=== PATIENT | male | born 1970 | race Caucasian/White ===

== ENCOUNTER 2023-03-31 13:25 | Outpatient (OUT) | payer BC, SELFPAY ==
--- NOTE | 2023-03-31 14:14 | PM.CN ---
Consult Note: HPI Data of Consult Patient: known to practice within the last 3 years Requesting Physician: OMA LOVE NP Primary Care Provider: DIVINA PEREZ Family Provider: Velia Duarte NP Consult Narrative Narrative: Gabriel Gruber a 53 year old male presents for follow up on chronic low back pain. Pt has history of L2-3 L4-5 ablations, Left side continues to provide 100% relief. Patient now having intense 8/10 pain reporting in right lower back without radiculopathy. Patient has been taking 800mg motrin PRN for pain with mild to no relief. cc:: CC: OMA LOVE NP Review of Systems ROS Status of ROS 10 or more systems reviewed and unremarkable except as noted in history and below Exam Constitutional Common normals: no apparent distress, oriented x3, healthy appearing, alert and well nourished General appearance: cooperative HENMT Common normals: normocephalic Head and scalp: normocephalic Mouth: oral and palatal mucosa normal Eye Common normals: PERRL Pupil: PERRL Neck & C-Spine Common normals: full ROM General: normal visual inspection Chest Common normals: inspection of chest normal Respiratory Common normals: normal respiratory effort, no retractions and no use of accessory muscles Back & Pelvis Common normals: thoracic and lumbar spine normal to inspection, no thoracic nor lumbar tenderness and straight leg raise negative bilaterally Lumbar spine/lower back: pain with ROM (pain in right lower back with rotation of back. ) Sacroiliac joints: SI joint(s) abnormal Other: Positive LAUREN, gaenslens, thigh thrust on right side with intense pain. tenderness to palpation over PSIS and SIJ joint deep palpation on right side. no radiculopathy present Extremity Common normals: normal to inspection, full ROM and no pedal edema Neuro Common normals: oriented x3, CN's II-XII intact bilaterally, moves all extremities, no focal motor deficits, no sensory deficits noted, deep tendon reflexes 2+ bilaterally and gait normal Sensorium/orientation: alert Gait (neuro): antalgic Motor exam: strength 5/5 throughout and no movement abnormalities noted Psych Common normals: mental status grossly normal, thought process normal, cooperative, affect normal, speech normal and activity/motor behavior normal Speech: normal speech Thought process: normal thought process Assessment and Plan Assessment and Plan (1) Medication monitoring encounter: (2) Sacroiliitis: Plan -start norco 5/325 BID PRN pain, side effects and risk/benefits discussed -avoid NSAIDs due to GI Bleeds -prescribed and discussed naloxone -OARRS reviewed and no discrepencies noted -update UDS today -right SIJ injection -f/u 1-2 weeks after injection
== END 2023-03-31 13:26 | disposition home or self-care (01) ==
PROVIDERS: Family Provider Nurse Practitioner; PCP Family Medicine; Visit Provider Nurse Practitioner
DX: M46.1 Sacroiliitis, not elsewhere classified (principal); Z51.81 Encounter for therapeutic drug level monitoring
CPT/HCPCS: G0463

== ENCOUNTER 2023-05-02 07:21 | Day surgery (SDC) | payer BC, SELFPAY ==
[2023-05-02 07:41] VITALS: BP 135/93; PULSE 90; RESP 14; TEMP 36.2; O2SAT 16
[2023-05-02 08:24] VITALS: BP 109/83; PULSE 88; RESP 18; O2SAT 99
[2023-05-02] MEDS: BUPIVACAINE HCL 0.25% PF 25 MG/10 ML VIAL INJ (08:25)
[2023-05-02] MEDS: IOHEXOL 240 MG/ML - 10 ML VIAL INJ (08:26)
[2023-05-02] MEDS: TRIAMCINOLONE ACETONIDE 40 MG/ML VIAL INJ (08:26)
[2023-05-02] MEDS: LIDOCAINE HCL 2% PF 100 MG/5 ML VIAL INJ (08:26)
--- NOTE | 2023-05-02 08:28 | W.PM.PROCNOT ---
Date of procedure: 05/02/23 Pre-op diagnosis: Right sacroiliac joint pain Post-op diagnosis: same as pre-op Procedure: Procedure: Block of the nerve innervating the right sacroiliac joint Medications: Bupivacaine 0.25% 4cc, kenalog 40mg After informed consent was obtained, the patient was brought to the medical procedure unit and placed in the prone position, when a timeout was completed verifying correct patient, procedure, site, positioning, implant, and/or special equipment.? The skin overlying the area was prepped and draped in standard sterile fashion using alcohol.? A 25-gauge needle was inserted towards the right nerve innervating the sacroiliac joint under direct fluoroscopic imaging.? Needle tip was advanced until the nerve was encountered.? We instilled a total of 3 mL of solution.? Postoperatively needles were removed.? The patient tolerated the procedure well without complication.? The patient reported reduction in pain symptoms postoperatively. Anesthesia: Local Surgeon: Davie Willett Pathology: none sent Condition: stable Disposition: no change
[2023-05-03 10:38] VITALS: BP 108/83; PULSE 83; RESP 18; O2SAT 97
== END 2023-05-02 08:30 | disposition home or self-care (01) ==
PROVIDERS: Family Provider Nurse Practitioner; PCP Family Medicine; Visit Provider Anesthesiology
DX: M53.3 Sacrococcygeal disorders, not elsewhere classified (principal)
CPT/HCPCS: 64451; 77002; Q9966

== ENCOUNTER 2023-07-06 11:02 | Outpatient (OUT) | payer BC, SELFPAY ==
--- NOTE | 2023-07-06 11:07 | XR_ITS ---
[address] [address] Patient Name: ALEJANDRA BOLDEN MRN: [id number] date: 1970 Sex: M Assigned Patient Location: RAD Current Patient Location: RAD Accession/Order Number: [id number] Exam Date: 07/06/2023 11:25 Report Date: 07/06/2023 20:30 At the request of: TORREY WILKINSON Procedure: XR abdomen min 2V Exam: Radiographs: XR abdomen min 2V Reason for exam: Acute Abdominal Pain Left Lower Quadrant R10.32 Comparison: CT scan dated 03/08/2021 XR/XR abdomen min 2V IMPRESSION: No free intraperitoneal air. No gas-filled dilated loops of small bowel or colon. No gaseous dilation of the stomach. No fecal impaction. Remainder unremarkable. Electronically authenticated by: MEAGHAN ZUÑIGA Date: 07/06/2023 20:30
== END 2023-07-06 11:03 | disposition home or self-care (01) ==
LOC: RAD 11:04
PROVIDERS: Family Provider Nurse Practitioner; PCP Family Medicine; Visit Provider Nurse Practitioner Family
DX: R10.32 Left lower quadrant pain (principal)
CPT/HCPCS: 74019

== ENCOUNTER 2024-09-25 15:25 | Outpatient (OUT) | payer BC, SELFPAY ==
--- NOTE | 2024-09-25 15:28 | MR_ITS ---
[address] [address] Patient Name: ALEJANDRA BOLDEN MRN: [id number] date: 1970 Sex: M Assigned Patient Location: MRI Current Patient Location: MRI Accession/Order Number: [id number] Exam Date: 09/25/2024 15:45 Report Date: 09/26/2024 14:49 At the request of: NON-STAFF PHYSICIAN Procedure: MR lumbar spine wo con EXAM: MR lumbar spine wo con HISTORY: Chronic Low Back Pain, Right Lumbosacral Pain. COMPARISON: 03/23/2018. TECHNIQUE: MRI images obtained with multiple sequences. MRI of the lumbar spine without contrast. Sequences obtained by standard department protocol. FINDINGS: The conus ends at L1. No abnormal signal of the terminal spinal cord. T11-T12: Mild disc degeneration. Mild broad-based posterior disc bulge. No spinal canal stenosis. No neural foraminal stenosis. T12-L1: Intervertebral disc height is preserved. No spinal canal stenosis. No neural foraminal stenosis. Facet joints are normal. L1-L2: Intervertebral disc height is preserved. No spinal canal stenosis. No neural foraminal stenosis. Facet joints are normal. L2-L3: Mild disc degeneration. Mild broad-based posterior disc bulge. No spinal canal stenosis. No neural foraminal stenosis. Facet joints are normal. L3-L4: Mild disc degeneration. Mild broad-based posterior disc bulge. No spinal canal stenosis. No neural foraminal stenosis. Facet joints are normal. L4-L5: Moderate disc degeneration. Central posterior disc protrusion. No spinal canal stenosis. Moderate left neural foraminal narrowing. Right neural foramen is open. Facet joints are normal. L5-S1: Moderate disc degeneration. Intervertebral disc height loss. Broad-based posterior disc bulge. No spinal canal stenosis. Bilateral moderate neural foraminal narrowing. Mild facet joint arthropathy. Degenerative endplate edema. No acute fractures. MR/MR lumbar spine wo con IMPRESSION: 1. Moderate neural foraminal narrowing at bilateral L5-S1. 2. Moderate disc degeneration at L4-L5 and L5-S1. 3. Central posterior disc protrusion at L4-L5. 4. No acute fractures. 5. Other findings as described. Electronically authenticated by: DAVID POSADA Date: 09/26/2024 14:49
--- OUTSIDE RECORDS SUMMARY | 2024-09-25 15:29 | XMS_ITS | CCD ---
Author Organization [facility] Care Team Providers Care Head Cashier Name Role Phone SARAH DÍAZ Referring Unavailable ANA, RUGEN M Primary Care Unavailable SARAH DÍAZ Referring Unavailable ANA, DIVINA Easton Primary Care Unavailable CHICA, DR NASIMA Roth Consulting Unavailable ANA, DR MURCIA Primary Care Unavailable CHICA, DR NASIMA Roth Attending Unavailable CHICA, DR NASIMA Roth Admitting Unavailable PALMA, NICOLAS Consulting Unavailable LORRIE ARCHER Consulting Unavailable ANA, DR MURCIA Primary Care Unavailable CHICA, DR NASIMA Roth Attending Unavailable CHICA, DR NASIMA Roth Admitting Unavailable ARCHERLORRIE WOODS Consulting Unavailable ANA, DR MURCIA Primary Care Unavailable CHICA, DR NASIMA Roth Attending Unavailable COTO, DR NASIMA Roth Admitting Unavailable CHICA, DR NASIMA Roth Consulting Unavailable ANA, DR MURCIA Primary Care Unavailable CHICA, DR NASIMA Roth Attending Unavailable CHICA, DR NASIMA Roth Admitting Unavailable RONY BENITO Consulting Unavailable ARCHER, LORRIE Consulting Unavailable ANA, DR MURCIA Primary Care Unavailable CHICA, DR NASIMA Roth Attending Unavailable CHICA, DR NASIMA Roth Admitting Unavailable CHICA, DR NASIMA Roth Consulting Unavailable ANA, DR MURCIA Primary Care Unavailable CHICA, DR NASIMA Roth Attending Unavailable CHICA, DR NASIMA Roth Admitting Unavailable CHICA, DR NASIMA Roth Consulting Unavailable ANA, DR MURCIA Primary Care Unavailable CHICA, DR NASIMA Roth Attending Unavailable CHCIA, DR NASIMA Roth Admitting Unavailable ARCHERLORRIE WOODS Consulting Unavailable ANA, DR MURCIA Primary Care Unavailable CHICA, DR NASIMA Roth Attending Unavailable COTO, DR NASIMA Roth Admitting Unavailable CHICA, DR NASIMA Roth Consulting Unavailable ANA, DR MURCIA Primary Care Unavailable CHICA, DR NASIMA Roth Attending Unavailable CHICA, DR NASIMA Roth Admitting Unavailable PALMA, NICOLAS Consulting Unavailable ANA, DR MURCIA Consulting Unavailable ANA, DR MURCIA Primary Care Unavailable ANA, DR MURCIA Attending Unavailable ANA, DR MURCIA Admitting Unavailable TEENA CONKLIN Consulting Unavailable ANA, DR MURCIA Primary Care Unavailable CHICA, DR NASIMA Roth Attending Unavailable CHICA, DR NASIMA Roth Admitting Unavailable LORRIE ARCHER Consulting Unavailable ANA, DR MURCIA Primary Care Unavailable CHICA, DR NASIMA Roth Attending Unavailable CHICA, DR NASIMA Roth Admitting Unavailable ARCHERLORRIE WOODS Consulting Unavailable ANA, DR MURCIA Primary Care Unavailable CHICA, DR NASIMA Roth Attending Unavailable CHICA, DR NASIMA Roth Admitting Unavailable MD Divina Perez Primary Care Provider DO Kory Pennington Jr Attending Provider [phone] MD Kimber Lucas Attending Provider Divina Perez Primary Care Unavailable Kimber Lucas Attending Unavailable Kimber Lucas Admitting Unavailable Kory Pennington Jr Admitting Unavailable Divina Perez Primary Care Unavailable Kory Pennington Jr Attending Unavailable Divina Perez Primary Care Unavailable Kimber Lucas Attending Unavailable Kimber Lucas Admitting Unavailable Kimber Lucas Unavailable Divina Perez MD Unavailable Divina Perez MD Primary Care Provider [phone] Divina Perez MD Primary Care Provider STEVEN GRANT Referring Unavailable DIVINA PEREZ Primary Care Unavailable DIVINA PEREZ Referring Unavailable DIVINA PEREZ Primary Care Unavailable STEVEN GRANT Attending Unavailable DIVINA PEREZ M Referring Unavailable DIVINA PEREZ M Primary Care Unavailable MEGAN JOLLEY Attending Unavailable STEVEN GRANT Referring Unavailable DIVINA PEREZ Attending Unavailable DIVINA PEREZ Attending Unavailable BINU SIBLEY Attending Unavailable DIVINA PEREZ Attending Unavailable MELANIE WATKINS Attending Unavailable STEVEN GRNAT Referring Unavailable DIVINA PEREZ Attending Unavailable CHIDI JENKINS Attending Unavailable STEVEN GRANT Referring Unavailable Medications Current Medications Medication Drug Class(es) Dates Sig (Normalized) Sig (Original) acetaminophen 325 mg / HYDROcodone bitartrate 5 mg oral tablet (17 sources) Opioid Agonist Start: 07-30-2024 End: 10-03-2024 take 1 tablet by mouth every six hours for pain HYDROcodone-acetam inophen ([place]) 5-325 MG tablet Indications: Lumbosacral spondylosis without myelopathy Take 1 tablet by mouth every 6 (six) hours if needed for severe pain 120 tablet 09/03/2024 10/03/2024 Active Start: 10-06-2022 take 1-2 tablets by mouth every four to six hours as needed HYDROcodone-Acetaminophen 5-325 MG 1-2 tablet as needed Orally every 4-6 hrs for 7 days Sep, Active [id number] 200 actuat albuterol 0.09 mg/actuat metered dose inhaler (12 sources) beta2-Adrenergic Agonist Start: 11-24-2023 take 2 puff(s) by mouth every six hours as needed albuterol HFA 90 mcg/act inhaler Indications: Smoking INHALE 2 PUFFS BY MOUTH EVERY 6 HOURS NEEDED FOR 30 DAYS 18 g 5 11/24/2023 Active take 2 puff(s) by in halation every six hours as needed VENTOLIN HFA 90 mcg/actuation inhaler Inhale 2 puffs every 6 (six) hours as needed. Active amLODIPine 10 mg oral tablet (20 sources) Dihydropyridine Calcium Channel Sanjana Start: 05-11-2021 take 1 tablet by mouth once daily amLODIPine (Norvasc) 10 MG tablet Indications: Benign essential hypertension (CMS/HCC) TAKE 1 TABLET BY MOUTH EVERY DAY 100 tablet 3 05/10/2024 Active Start: 05-11-2021 take 10 mg by mouth twice tiffany y Amlodipine Active 10 MG PO Twice daily May 10, 2021 11:00pm baclofen 20 mg oral tablet (2 sources) gamma-Aminobutyric Acid-ergic Agonist Start: 10-07-2022 take 20 mg by mouth once daily at bedtime Baclofen Active 20 MG PO Daily at bedtime October 07, 2022 12:00am carvedilol 25 mg oral tablet (20 sources) alpha-Adrenergic Sanjana, beta-Adrenergic Sanjana Start: 08-20-2024 take 1 tablet by mouth twice daily at mealtime carvedilol (Coreg) 25 MG tablet Indications: Benign essential hypertension (CMS/HCC) TAKE 1 TABLET BY MOUTH TWICE A DAY WITH FOOD 180 tablet 4 08/20/2024 Active Start: 05-08-2018 take 1 tablet by parish twice daily at mealtime carvedilol (Coreg) 25 MG tablet Indications: Benign essential hypertension (CMS/HCC) TAKE 1 TABLET BY MOUTH TWICE A DAY WITH FOOD 200 tablet 3 08/26/2023 Active Start: 05-08-2018 take 25 mg by mouth once daily in the morning Carvedilol Active 25 MG PO Every morning May 10, 2021 11:00pm cloNIDine hydrochloride 0.2 mg oral tablet (20 sources) Central alpha-2 Adrenergic Agonist Start: 02-08-2024 take 1 tablet by mouth twice daily cloNIDine (Catapres) 0.2 MG tablet Indications: Essential hypertension, benign (CMS/HCC) TAKE 1 TABLET BY MOUTH TWICE A DAY 200 tablet 4 02/08/2024 Active Start: 05-11-2021 Clonidine Hcl Active 0.2 MG PO As Directed May 10, 2021 11:00pm Start: 05-11-2021 take 0.1 mg by mouth twice shae ly Clonidine Hcl Active 0.1 MG PO Twice daily May 10, 2021 11:00pm Start: 05-19-2018 take 2 tablets by mo [facility] in the morning, then take 2 tablets by mouth at bedtime cloNIDine (CATAPRES) 0.1 mg tablet Take 2 tablets (0.2 mg total) by mouth in the morning and 2 tablets (0.2 mg total) before bedtime. 4 05/19/2018 Active diclofenac sodium 0.01 mg/mg topical gel (3 sources) Nonsteroidal Anti-inflammatory Drug Start: 11-03-2022 Diclofenac Sodium 1 % apply 1-2 grams to affected area two to four times daily as needed Transdermal Twice a day for 30 days Oct, Active doxycycline hyclate 100 mg oral tablet (1 source) Tetracycline-class Drug Start: 10-08-2022 take 100 mg by mouth twice daily Doxycycline Hyclate Active 100 MG PO Twice daily 10 October 08, 2022 12:00am furosemide 20 mg oral tablet (12 sources) Loop Diuretic Start: 05-08-2024 take 1 tablet by mouth at bedtime furosemide (Lasix) 20 MG tablet Indications: Benign essential hypertension (CMS/HCC) , Swelling of lower extremity TAKE 1 TABLET (20 MG) BY MOUTH IN THE MORNING AND BEFORE BEDTIME 200 tablet 3 05/08/2024 Active hydroCHLOROthiazide 50 mg oral tablet (13 sources) Thiazide Diuretic Start: 05-11-2021 take 50 mg by mouth once daily in the morning Hydrochlorothiazide Active 50 MG PO Every morning May 10, 2021 11:00pm Start: 05-11-2021 End: 05-11-2021 Hydrochlorothiazide Disconti nued 25 MG PO As Directed May 10, 2021 11:00pm May 11, 2021 6:02am End: 08-09-2024 take 1 tablet by mouth once daily hydroCHLOROthiazide (HYDRODIURIL) 12.5 mg tablet Take 12.5 mg by mouth daily. 08/09/2024 Discontinued (Therapy completed) methylPREDNISolone 4 mg oral tablet (3 sources) Corticosteroid Start: 11-03-2022 Medrol 4 MG as directed Orally for 6 days Oct, Active naproxen sodium 220 mg oral tablet (13 sources) Nonsteroidal Anti-inflammatory Drug Start: 10-07-2022 take 2 tablets by mouth twice daily Naproxen Sodium (Aleve) 220 mg Tablet Active 440 MG PO Twice daily October 07, 2022 12:00am take 1 tablet by mouth every twe lve hours naproxen sodium (Aleve) 220 MG tablet Take 220 mg by mouth every 12 (twelve) hours. PRN Active predniSONE 10 mg oral tablet (5 sources) Start: 07-30-2024 End: 08-15-2024 take 4 tablets by mouth once daily, then take 3 tablets by mouth once daily, then take 2 tablets by mouth once daily, then take 1 tablet by mouth once daily predniSONE (Deltasone) 10 MG tablet Indications: Lumbosacral spondylosis without myelopathy Take 4 tablets (40 mg) by mouth Daily for 4 days, THEN 3 tablets (30 mg) Daily for 4 days, THEN 2 tablets (20 mg) Daily for 4 days, THEN 1 tablet (10 mg) Daily for 4 days. 40 tablet 07/30/2024 08/15/2024 Active Start: 07-30-2024 End: 08-15-2024 predniSONE (DELTASONE) 10 mg tablet Take by mouth. 07/30/2024 08/15/2024 Active Start: 11-26-2022 predniSONE 5 M G TAKE 5 PILLS BY MOUTH x 2 DAYS, THEN TAKE 4 PILLS BY MOUTH x 2 DAYS, THEN TAKE 3 PILLS BY MOUTH x 2 DAYS, THEN TAKE 2 PILLS BY MOUTH X 2 DAYS, THEN TAKE 1 PILL BY MOUTH x 2 DAY Orally daily for 10 days Nov, Active probiotic (5 sources) probiotic Active tiZANidine 4 mg oral capsule (14 sources) Central alpha-2 Adrenergic Agonist Start: 4 End: 5 take 1 capsule by mouth in the morning, then take 1 capsule by mouth in the evening, then take 1 capsule by mouth at bedtime tiZANidine (Zanaflex) 4 MG capsule Indications: Lumbosacral spondylosis without myelopathy Take 1 capsule (4 mg) by mouth in the morning and 1 capsule (4 mg) in the evening and 1 capsule (4 mg) before bedtime. 90 capsule 07/30/2024 Active Start: 07-30-2024 tiZANidine (ZA NAFLEX) 4 mg tablet 1 tablet (4 mg total) 3 (three) times a day. 07/30/2024 Active traMADol hydrochloride 50 mg oral tablet (2 sources) Opioid Agonist Start: 10-07-2022 take 50 mg by mouth once daily Tramadol Active 50 MG PO Daily October 07, 2022 12:00am Completed/Discontinued Medications Medication Drug Class(es) Dates Sig (Normalized) Sig (Original) aspirin 81 mg oral tablet (16 sources) Platelet Aggregation Inhibitor, Nonsteroidal Anti-inflammatory Drug Start: 05-11-2021 End: 10-07-2022 take 81 mg by mouth once daily Aspirin Discontinued 81 MG PO Daily May 10, 2021 11:00pm October 07, 2022 9:50am aspirin (Aspir-L ow) 81 MG EC tablet Take by mouth 1 (one) time each day at the same time. Active dicyclomine hydrochloride 20 mg oral tablet (3 sources) Anticholinergic Start: 05-11-2021 End: 05-11-2021 Dicyclomine Discontinued 20 MG PO As Directed May 10, 2021 11:00pm May 11, 2021 6:02am hyoscyamine sulfate 0.125 mg sublingual tablet (3 sources) Start: 05-11-2021 End: 10-07-2022 Hyoscyamine Sulfate Discontinued 0.125 MG PO As Directed May 10, 2021 11:00pm October 07, 2022 9:51am ibuprofen 800 mg oral tablet (11 sources) Nonsteroidal Anti-inflammatory Drug Start: 02-07-2023 End: 07-30-2024 take 1 tablet by mouth three times daily at mealtime as needed ibuprofen 800 MG tablet TAKE 1 TABLET BY MOUTH THREE TIMES A DAY WITH FOOD OR MILK NEEDED FOR 30 DAYS 02/07/2023 07/30/2024 Discontinued (Therapy completed) Start: 10-15-2022 take 1 tablet by parish th three times daily at mealtime as needed Ibuprofen 800 MG 1 tablet with food or milk as needed Orally Three times a day for 30 days Sep, Active Start: 10-07-2022 take 800 mg by mouth twice shae ly Ibuprofen Active 800 MG PO Twice daily October 07, 2022 12:00am Problems Active Problems Problem Classification Problem Date Documented Date Episodic/Chronic Alcohol-related disorders (20 sources) Continuous chronic alcoholism; Translations: [Alcohol dependence, uncomplicated] Onset: 0 01-19-2023 Chronic Anxiety disorders (16 sources) Acute stress disorder; Translations: [Acute stress reaction] Onset: 3 01-19-2023 Chronic Disorders of lipid metabolism (16 sources) Hyperlipidemia; Translations: [Hyperlipidemia, unspecified] Onset: 9 01-27-2023 Chronic Diverticulosis and diverticulitis (20 sources) Diverticulosis of colon; Translations: [Diverticulosis of large intestine without perforation or abscess without bleeding] Onset: 3 01-19-2023 Chronic Essential hypertension (20 sources) Elevated blood pressure; Translations: [Essential (primary) hypertension] Onset: 9 01-19-2023 Chronic Joint disorders and dislocations; trauma-related (10 sources) Dislocation of metacarpophalangeal joint; Translations: [Dislocation of metacarpophalangeal joint of unspecified finger, initial encounter] Onset: 3 10-08-2022 Episodic Osteoarthritis (5 sources) Degenerative joint disease involving multiple joints; Translations: [Polyosteoarthritis, unspecified] Onset: 9 Chronic Other and unspecified benign neoplasm (3 sources) Polyp of colon; Translations: [Polyp of colon] 05-11-2021 Episodic Other and unspecified benign neoplasm (5 sources) History of polyp of colon; Translations: [Personal history of colonic polyps] Episodic Other circulatory disease (1 source) Other specified symptoms and signs involving the circulatory and respiratory systems; Translations: [OTH SPEC SX SIGNS INVLV CIRC RS] Onset: 3 Episodic Other connective tissue disease (4 sources) Other muscle spasm; Translations: [OTHER MUSCLE SPASM] Onset: 2 Episodic Other connective tissue disease (1 source) Pain in unspecified limb; Translations: [Pain in unspecified limb] Onset: 3 Episodic Other ear and sense organ disorders (2 sources) Bilateral hearing loss; Translations: [Unspecified hearing loss, bilateral] 07-11-2024 Chronic Other ear and sense organ disorders (11 sources) Hearing loss; Translations: [Unspecified hearing loss, unspecified ear] Onset: 3 01-19-2023 Chronic Other ear and sense organ disorders (11 sources) Sensorineural hearing loss, bilateral; Translations: [Sensorineural hearing loss, bilateral] Onset: 3 01-19-2023 Chronic Other ear and sense organ disorders (1 source) Sensorineural hearing loss; Translations: [Unspecified sensorineural hearing loss] Onset: 4 08-09-2024 Chronic Other endocrine disorders (11 sources) Male hypogonadism; Translations: [Testicular hypofunction] Onset: 3 01-19-2023 Chronic Other gastrointestinal disorders (5 sources) Irritable bowel syndrome; Translations: [Other irritable bowel syndrome] Chronic Other gastrointestinal disorders (11 sources) Irritable bowel syndrome characterized by constipation; Translations: [Irritable bowel syndrome with constipation] Onset: 3 01-19-2023 Chronic Other nervous system disorders (2 sources) Other chronic pain; Translations: [OTHER CHRONIC PAIN] Onset: 2 Chronic Other nervous system disorders (16 sources) Carpal tunnel syndrome; Translations: [Carpal tunnel syndrome, left upper limb] Onset: 3 01-19-2023 Chronic Other nervous system disorders (11 sources) Ulnar nerve entrapment at elbow; Translations: [Lesion of ulnar nerve, unspecified upper limb] Onset: 3 01-19-2023 Chronic Other nervous system disorders (11 sources) Disorder of right median nerve; Translations: [Other lesions of median nerve, right upper limb] Onset: 3 01-19-2023 Chronic Other nervous system disorders (11 sources) Lesion of ulnar nerve, right upper limb; Translations: [Lesion of ulnar nerve] Onset: 3 01-19-2023 Chronic Other nervous system disorders (2 sources) Chronic pain; Translations: [Other chronic pain] 08-29-2024 Chronic Other nervous system disorders (1 source) Pain in limb; Translations: [Other acute postprocedural pain] 10-08-2022 Episodic Other nervous system disorders (1 source) Other acute postprocedural pain; Translations: [Other acute postprocedural pain] Onset: 3 Episodic Other screening for suspected conditions (not mental disorders or infectious disease) (4 sources) Encounter for screening, unspecified; Translations: [ENCOUNTER FOR SCREENING UNSPECIFIED] Onset: 3 Episodic Other upper respiratory disease (16 sources) Allergic rhinitis; Translations: [Allergic rhinitis, unspecified] Onset: 9 01-19-2023 Chronic Residual codes; unclassified (11 sources) Sleep apnea; Translations: [Sleep apnea, unspecified] Onset: 3 01-19-2023 Chronic Residual codes; unclassified (2 sources) Chronic back pain 08-09-2024 Episodic Residual codes; unclassified (1 source) Pain, unspecified; Translations: [Pain, unspecified] Onset: 4 Episodic Spondylosis; intervertebral disc disorders; other back problems (20 sources) Other intervertebral disc degeneration, lumbar region; Translations: [Spondylosis without myelopathy or radiculopathy, lumbar region] Onset: 8 Chronic Spondylosis; intervertebral disc disorders; other back problems (20 sources) Muscle spasm of back; Translations: [Pain in thoracic spine] Onset: 2 Episodic Sprains and strains (10 sources) Traumatic rupture of collateral ligament of metacarpophalangeal joint of finger; Translations: [Traumatic rupture of collateral ligament of unspecified finger at metacarpophalangeal and interphalangeal joint, initial encounter] Onset: 3 10-08-2022 Episodic Substance-related disorders (11 sources) Smoker; Translations: [Nicotine dependence, unspecified, uncomplicated] Onset: 3 01-19-2023 Chronic Unclassified (3 sources) COUGH, UNSPECIFIED; Translations: [COUGH, UNSPECIFIED] Onset: 3 Unclassified (4 sources) LOW BACK PAIN, UNSPECIFIED; Translations: [LOW BACK PAIN, UNSPECIFIED] Onset: 2 Unclassified (1 source) Traumatic rupture of collateral ligament of right middle finger at metacarpophalangeal and interphalangeal joint, initial encounter; Translations: [Traumatic rupture of collateral ligament of right middle finger at metacarpophalangeal and interphalangeal joint, initial encounter] Onset: 3 Unclassified (1 source) Encounter for preprocedural laboratory examination; Translations: [Encounter for preprocedural laboratory examination] Onset: 3 Unclassified (2 sources) Low back pain, unspecified; Translations: [Low back pain, unspecified] Onset: 4 Unclassified (1 source) Consult Onset: 4 Past or Other Problems Problem Classification Problem Date Documented Da te Episodic/Chronic Abdominal pain (19 sources) Abdominal pain; Translations: [Unspecified abdominal pain] Onset: 01-19-2023 05-11-2021 Episodic Nonmalignant breast conditions (11 sources) Pain of breast; Translations: [Mastodynia] Onset: 07-18-2023 07-18-2023 Episodic Other and unspecified benign neoplasm (11 sources) Benign neoplasm of colon; Translations: [Benign neoplasm of colon, unspecified] Onset: 01-19-2023 01-19-2023 Episodic Other circulatory disease (11 sources) Cardiovascular finding; Translations: [Other specified symptoms and signs involving the circulatory and respiratory systems] Onset: 01-19-2023 01-19-2023 Episodic Other connective tissue disease (11 sources) Swelling of lower limb; Translations: [Other specified soft tissue disorders] Onset: 01-03-2024 01-03-2024 Episodic Other ear and sense organ disorders (11 sources) Bilateral tinnitus; Translations: [Tinnitus, bilateral] Onset: 01-19-2023 01-19-2023 Episodic Other ear and sense organ disorders (11 sources) Tinnitus; Translations: [Tinnitus, unspecified ear] Onset: 01-19-2023 3 Episodic Other gastrointestinal disorders (11 sources) Dysphagia; Translations: [Dysphagia, unspecified] Onset: 01-19-2023 01-19-2023 Episodic Other male genital disorders (11 sources) Disorder of male genital organ; Translations: [Other specified disorders of the male genital organs] Onset: 01-19-2023 01-19-2023 Episodic Residual codes; unclassified (5 sources) Tobacco user; Translations: [Tobacco use] Onset: 08-23-2008 Episodic Unclassified (1 source) COUGH, UNSPECIFIED; Translations: [COUGH, UNSPECIFIED] Onset: 09-06-2022 Unclassified (1 source) LOW BACK PAIN, UNSPECIFIED; Translations: [LOW BACK PAIN, UNSPECIFIED] Onset: 10-28-2021 Unclassified (1 source) Onset: 08-09-2024 08-09-2024 Results Test Name Value Interpretation Reference Range Facility XR LUMBAR SPINE AP, LATERAL, FLEXION AND EXTENSION ONLYon 08-07-2024 XR LUMBAR SPINE AP, LATERAL, FLEXION AND EXTENSION ONLY XR LUMBAR SPINE AP, LATERAL, FLEXION AND EXTENSION ONLY XR LUMBAR SPINE AP, LATERAL, FLEXION AND EXTENSION ONLY INDICATION: Low back pain, unspecified back pain laterality, unspecified chronicity, unspecified whether sciatica present. FINDINGS: Satisfactory alignment of the lumbar spine. No pathologic motion on flexion and extension views. Vertebral body heights are preserved. No compression fracture. Moderate degenerative changes at L4-5 and L5-S1 with intervertebral disc space height loss, osteophyte formation, and facet hypertrophy. SI joints are symmetric. IMPRESSION: 1. No acute findings. 2. Moderate degenerative changes at L4-5 and L5-S1 as above. 3. No pathologic motion on flexion and extension views. Finalized by Jeffrey Yoon MD on 08/07/2024 11:53 PM Normal [facility] XR finger RT 2nd digiton XR finger RT 2nd digit [facility] Main [place] [id number] XRay Report Signed Patient: Alejandra Bolden MR#: [id number] : 1970 Acct:[id number] Age/Sex: 52 / M ADM Date: 10/08/22 Loc: [place] Room: Type: [facility] Attending Dr: Kimber Lucas MD Copies to: Kimber Lucas MD Ordering Provider: Kimber Lucas MD Date of Service: 10/08/22 XR/XR finger RT 2nd digit: FINGER PINNING XR finger RT 2nd digit 10/08/2022 2:36 PM SIGNS AND SYMPTOMS: Intraoperative fixation of right second digit PROTOCOL: Intraoperative views of the right hand COMPARISON: None FINDINGS: Intraoperative views of the right hand demonstrate hardware fixation of the right second digit. Cumulative Air Kerma in mGy: 16.4 mGy XR/XR finger RT 2nd digit IMPRESSION: Intraoperative views of the right hand demonstrate hardware fixation of the right second digit. Impression dictated by: Srinivas Park M.D.10/08/2022 2:47 PM Dictation Location: [place] [address] Transcribed By: [facility] 10/08/22 1447 Dictated By: Srinivas Park II, MD 10/08/22 1446 Signed By: 10/08/22 1447 Normal [facility] XR hand RT min 3V*on 023 XR hand RT min 3V* [place] [address] XRay Report Signed Patient: Alejandra Bolden MR#: [id number] : 1970 Acct:[id number] Age/Sex: 52 / M ADM Date: 10/08/22 Loc: [place] Room: Type: [facility] Attending Dr: Kimber Lucas MD Copies to: Kimber Lucas MD Ordering Provider: Kimber Lucas MD Date of Service: 10/08/22 XR/XR hand RT min 3V*: s/p OR index/ long MCP volar dislocations w/ RCL repairs RIGHT HAND - 3 views REASON FOR EXAM: MCP volar dislocations with RCL repairs. COMPARISON: Right hand 10/05/2022 FINDINGS: Splint is in place. Soft tissue swelling is noted. There is been interval reduction of the previously identified subluxations involving the second and third MCP joints. Scattered degenerative changes, worst at the CMC joint of the thumb. XR/XR hand RT min 3V* IMPRESSION: POSTOPERATIVE CHANGES. Impression dictated by: Dimitry Pink Jr., [email or web address]/08/2022 3:31 PM Dictation Location: [place] [address] Transcribed By: [facility] 10/08/22 1531 Dictated By: Dimitry Pink Jr, DO 10/08/22 1526 Signed By: 10/08/22 1531 Normal [facility] Albumin [Mass/volume] in Ser um or PlasmaOrdered By: Kimber Lucas on 10-07-2022 Albumin [Mass/Vol] 3.5 g/dL 3.2-5.5 [facility] Basophils Auto (Bld) [#/Vol] Ordered By: Kimber Lucas on 10-07-2022 Basophils (Bld) [#/Vol] 0.0 10*3/uL 0.0-0.2 [facility] Basophils/100 WBC Auto (Bld) Ordered By: Kimber Lucas on 10-07-2022 Basophils/100 WBC (Bld) 0.5 % . [facility] Complete Blood Count Auto Di ffon 10-07-2022 Basophils (Bld) [#/Vol] 0.0 10*3/uL Normal 0.0-0.2 [facility] Comment on above: Result Comment: PERF ORMED BY: [place] [address] PATHOLOGIST ASSISTANT PRINCIPAL JAYESH CARTER M.D. Performed By: #### C BC, CMP #### [facility] [address] [place] [address] [place] Basophils/100 WBC (Bld) 0.5 % Normal . [facility] Comment on above: Performed By: #### C BC, CMP #### [facility] [address] [place] [address] [place] Eosinophils (Bld) [#/Vol] 0.1 10*3/uL Normal 0.0-0.45 [facility] Comment on above: Performed By: #### C BC, CMP #### [facility] [address] [place] [address] [place] Eosinophils/100 WBC (Bld) 0.8 % Normal . [facility] Comment on above: Performed By: #### C BC, CMP #### [facility] [address] Erythrocyte distribution width (RBC) [Ratio] 14.6 % Normal 12.0-14.8 [facility] Comment on above: Performed By: #### C BC, CMP #### [facility] [address] Hematocrit (Bld) [Volume fraction] 41.8 % Normal 38.8-50.0 [facility] Comment on above: Performed By: #### C BC, CMP #### [facility] [address] Hemoglobin (Bld) [Mass/Vol] 14.7 g/dL Normal 13.0-17.0 [facility] Comment on above: Performed By: #### C BC, CMP #### [facility] [address] Lymphocytes (Bld) [#/Vol] 2.5 10*3/uL Normal 1.00-4.8 [facility] Comment on above: Performed By: #### C BC, CMP #### [facility] [address] Lymphocytes/100 WBC (Bld) 36.2 % Normal . [facility] Comment on above: Performed By: #### C BC, CMP #### [facility] [address] MCH (RBC) [Entitic mass] 34.5 pg Normal 27.5-35.2 [facility] Comment on above: Performed By: #### C BC, CMP #### [facility] [address] MCV (RBC) [Entitic vol] 97.6 fL Normal 83.5-101 [facility] Comment on above: Performed By: #### C BC, CMP #### [facility] [address] Mean Corpuscular HGB Conc 35.3 g/dL Normal 32.5-35.6 [facility] Comment on above: Performed By: #### C BC, CMP #### [facility] [address] [place] [address] [place] Monocytes (Bld) [#/Vol] 0.8 10*3/uL Normal 0.0-0.8 [facility] Comment on above: Performed By: #### C BC, CMP #### [facility] [address] [place] [id number] [place] Monocytes/100 WBC (Bld) 11.7 % Normal . [facility] Comment on above: Performed By: #### C BC, CMP #### [facility] [address] [place] [address] [place] Neutrophils (Bld) [#/Vol] 3.5 10*3/uL Normal 1.8-7.7 [facility] Comment on above: Performed By: #### C BC, CMP #### [facility] [address] Neutrophils/100 WBC (Bld) 50.8 % Normal . [facility] Comment on above: Performed By: #### C BC, CMP #### [facility] [address] [place] [address] [place] NRBC% 0.1 /100{WBC} Normal 0-0.5 [facility] Comment on above: Performed By: #### C BC, CMP #### [facility] [address] [place] [address] [place] Platelet mean volume (Bld) [Entitic vol] 8.4 fL Normal 6.6-10.1 [facility] Comment on above: Performed By: #### C BC, CMP #### [facility] [address] [place] [address] [place] Platelets (Bld) [#/Vol] 210 10*3/uL Normal 150-450 [facility] Comment on above: Performed By: #### C BC, CMP #### [facility] [address] [place] [address] [place] RBC (Bld) [#/Vol] 4.28 10*6/uL Normal 3.90-5.60 [facility] Comment on above: Performed By: #### C BC, CMP #### [address] WBC (Bld) [#/Vol] 6.9 10*3/uL Normal 4.1-10.5 [facility] Comment on above: Performed By: #### C BC, CMP #### [address] Comprehensive Metabolic Pane bhupinder 10-07-2022 Albumin [Mass/Vol] 3.5 g/dL Normal 3.2-5.5 [facility] Comment on above: Performed By: #### C BC, CMP #### [address] Albumin/Globulin [Mass ratio] 1.5 {ratio} Normal [facility] Comment on above: Performed By: #### C BC, CMP #### [address] ALP [Catalytic activity/Vol] 76 U/L Normal 32-92 [facility] Comment on above: Result Comment: PERF ORMED BY: [place] [address] PATHOLOGIST ASSISTANT PRINCIPAL JAYESH CARTER M.D. Performed By: #### C BC, CMP #### [address] ALT [Catalytic activity/Vol] 36 U/L Normal 10-60 [facility] Comment on above: Performed By: #### C BC, CMP #### [address] Anion gap [Moles/Vol] 12.1 mmol/L Normal 6.0-15.0 [facility] Comment on above: Performed By: #### C BC, CMP #### [address] AST [Catalytic activity/Vol] 33 U/L Normal 10-42 [facility] Comment on above: Performed By: #### C BC, CMP #### [address] [place] [address] [place] Bilirubin [Mass/Vol] 0.7 mg/dL Normal 0.3-1.2 [facility] Comment on above: Performed By: #### C BC, CMP #### [facility] [address] Calcium [Mass/Vol] 8.9 mg/dL Normal 8.2-10.2 [facility] Comment on above: Performed By: #### C BC, CMP #### [facility] [address] Chloride [Moles/Vol] 97 mmol/L Normal 95-114 [facility] Comment on above: Performed By: #### C BC, CMP #### [facility] [address] CO2 [Moles/Vol] 29.2 mmol/L Normal 22.0-30.0 [facility] Comment on above: Performed By: #### C BC, CMP #### [facility] [address] Creatinine [Mass/Vol] 0.86 mg/dL Normal 0.64-1.27 [facility] Comment on above: Performed By: #### C BC, CMP #### [address] Estimated GFR ( Jennifer > 60 Normal [facility] Comment on above: Result Comment: GFR estimated reference range: According to KDOQI guidelines, <60 ml/min/1.73m2 is sufficient to diagnose a patient with chronic kidney disease. Performed By: #### C BC, CMP #### [facility] [address] [place] [address] [place] Estimated GFR (Non- Am > 60 Normal [facility] Comment on above: Performed By: #### C BC, CMP #### [facility] [address] [place] [address] [place] Globulin (S) [Mass/Vol] 2.3 g/dL Normal [facility] Comment on above: Performed By: #### C BC, CMP #### [facility] [address] Glucose [Mass/Vol] 86 mg/dL Normal 70-100 [facility] Comment on above: Result Comment: [place] Glucose Reference Range is dependent on time and content of last meal. Glucose of more than 200 mg/dL in a nonstressed, ambulatory subject supports the diagnosis of Diabetes Mellitus. ADA recommended reference range Performed By: #### C BC, CMP #### [facility] [address] Potassium [Moles/Vol] 3.3 mmol/L Low 3.5-5.1 [facility] Comment on above: Performed By: #### C BC, CMP #### [facility] [address] Protein [Mass/Vol] 5.8 g/dL Low 6.1-7.9 [facility] Comment on above: Performed By: #### C BC, CMP #### [address] Sodium [Moles/Vol] 135 mmol/L Low 136-146 [facility] Comment on above: Performed By: #### C BC, CMP #### [place] [address] [place] Urea nitrogen [Mass/Vol] 6 mg/dL Low 9-23 [facility] Comment on above: Performed By: #### C BC, CMP #### [place] [address] [place] Creatinine and Glomerular fi ltration rate.predicted panel (S/P/Bld)Ordered By: Kimber Lucas on 10-07-2022 Creatinine [Mass/Vol] 0.86 mg/dL 0.64-1.27 [facility] ECG 12 lead ECGon 10-07-2022 ECG 12 lead ECG [facility] [place] [address] [place] [address] Electrocardiograph Report Signed Patient: Alejandra Bolden MR#: [id number] : 1970 Acct:[id number] Age/Sex: 52 / M ADM Date: 10/07/22 Loc: PS Room: Type: [facility] Attending Dr: Kimber Lucas MD Ordering Provider: Kimber Lucas MD Date of Service: 10/07/22 ECG/ECG 12 lead ECG: Pre op Copies to: Test Reason : Blood Pressure : / mmHG Vent. Rate : 064 BPM Atrial Rate : 064 BPM P-R Int : 136 ms QRS Dur : 088 ms QT Int : 436 ms P-R-T Axes : 067 037 051 degrees QTc Int : 449 ms Normal sinus rhythm Normal ECG No previous ECGs available Confirmed by DAVID YORK DO ([id number]) on 10/07/2022 9:39:48 PM Referred By: DR LUCAS Electronically Signed By:DAVID YORK DO Transcribed By: MUS Signed By David York DO 10/07 Normal [facility] Eosinophils Auto (Bld) [#/Vo l]Ordered By: Kimber Lucas on 10-07-2022 Eosinophils (Bld) [#/Vol] 0.1 10*3/uL 0.0-0.45 [facility] Eosinophils/100 WBC Auto (Bl d)Ordered By: Kimber Lucas on 10-07-2022 Eosinophils/100 WBC (Bld) 0.8 % . [facility] Erythrocyte distribution wid th Auto (RBC) [Ratio]Ordered By: Kimber Lucas on 10-07-2022 Erythrocyte distribution width (RBC) [Ratio] 14.6 % 12.0-14.8 [facility] Estimated glomerular filtrat ion rate (GFR) non- AmericanOrdered By: Kimber Lucas on 10-07-2022 GFR/1.73 sq M.predicted among non-blacks MDRD (S/P/Bld) [Vol rate/Area] > 60 mL/Min [facility] Globulin Calc (S) [Mass/Vol] Ordered By: Kimber Lucas on 10-07-2022 Globulin (S) [Mass/Vol] 2.3 g/dL [facility] Hematocrit Auto (Bld) [Volum e fraction]Ordered By: Kimber Lucas on 10-07-2022 Hematocrit (Bld) [Volume fraction] 41.8 % 38.8-50.0 [facility] Hemoglobin [Mass/volume] in BloodOrdered By: Kimber Lucas on 10-07-2022 Hemoglobin (Bld) [Mass/Vol] 14.7 g/dL 13.0-17.0 [facility] Leukocytes [#/volume] correc tiffanie for nucleated erythrocytes in Blood by Automated counOrdered By: Kimber Lucas on 10-07-2022 WBC corrected for nucl RBC Auto (Bld) [#/Vol] 6.9 10*3/uL 4.1-10.5 [facility] Lymphocytes Auto (Bld) [#/Vo l]Ordered By: Kimber Lucas on 10-07-2022 Lymphocytes (Bld) [#/Vol] 2.5 10*3/uL 1.00-4.8 [facility] Lymphocytes/100 WBC Auto (Bl d)Ordered By: Kimber Lucas on 10-07-2022 Lymphocytes/100 WBC (Bld) 36.2 % . [facility] MCH Auto (RBC) [Entitic mass ]Ordered By: Kimber Lucas on 10-07-2022 MCH (RBC) [Entitic mass] 34.5 pg 27.5-35.2 [facility] MCHC Auto (RBC) [Mass/Vol]Or dered By: Kimber Lucas on 10-07-2022 MCHC (RBC) [Mass/Vol] 35.3 g/dL 32.5-35.6 [facility] MCV Auto (RBC) [Entitic vol] Ordered By: Kimber Lucas on 10-07-2022 MCV (RBC) [Entitic vol] 97.6 fL 83.5-101 [facility] Monocytes Auto (Bld) [#/Vol] Ordered By: Kimber Lucas on 10-07-2022 Monocytes (Bld) [#/Vol] 0.8 10*3/uL 0.0-0.8 [facility] Monocytes/100 WBC Auto (Bld) Ordered By: Kimber Lucas on 10-07-2022 Monocytes/100 WBC (Bld) 11.7 % . [facility] Neutrophils Auto (Bld) [#/Vo l]Ordered By: Kimber Lucas on 10-07-2022 Neutrophils (Bld) [#/Vol] 3.5 10*3/uL 1.8-7.7 [facility] Neutrophils/100 WBC Auto (Bl d)Ordered By: Kimber Lucas on 10-07-2022 Neutrophils/100 WBC (Bld) 50.8 % . [facility] No Panel InformationOrdered By: Kimber Lucas on 10-07-2022 Estimated GFR () > 60 mL/Min [facility] Comment on above: GFR estimated refere nce range: According to KDOQI guidelines, <60 ml/min/1.73m2 is sufficient to diagnose a patient with chronic kidney disease. Pharmacy Creatinine Clearance (Chem N/A [facility] Nucleated erythrocytes [Pres ence] in Blood by Automated countOrdered By: Kimber Lucas on 10-07-2022 Nucleated RBC Auto Ql (Bld) 0.1 /100{WBC} 0-0.5 [facility] Platelet mean volume Auto (B ld) [Entitic vol]Ordered By: Kimber Lucas on 10-07-2022 Platelet mean volume (Bld) [Entitic vol] 8.4 fL 6.6-10.1 [facility] Platelets Auto (Bld) [#/Vol] Ordered By: Kimber Lucas on 10-07-2022 Platelets (Bld) [#/Vol] 210 10*3/uL 150-450 [facility] Protein [Mass/volume] in Ser um or PlasmaOrdered By: Kimber Lucas on 10-07-2022 Protein [Mass/Vol] 5.8 g/dL 6.1-7.9 [facility] RBC Auto (Bld) [#/Vol]Ordere d By: Kimber Lucas on 10-07-2022 RBC (Bld) [#/Vol] 4.28 10*6/uL 3.90-5.60 [facility] Serum or plasma alanine collado otransferase measurement without P-5'-P (enzymatic activiOrdered By: Kimber Lucas on 10-07-2022 ALT No additional P-5'-P [Catalytic activity/Vol] 36 U/L 10-60 [facility] Serum or plasma albumin/glob ulin mass ratioOrdered By: Kimber Lucas on 10-07-2022 Albumin/Globulin [Mass ratio] 1.5 {ratio} [facility] Serum or plasma alkaline adair sphatase measurement (enzymatic activity/volume)Ordered By: Kimber Lucas on 10-07-2022 ALP [Catalytic activity/Vol] 76 U/L 32-92 [facility] Serum or plasma anion gap de terminationOrdered By: Kimber Lucas on 10-07-2022 Anion gap [Moles/Vol] 12.1 mmol/L 6.0-15.0 [facility] Serum or plasma aspartate am inotransferase measurement (enzymatic activity/volume)Ordered By: Kimber Lucas on 10-07-2022 AST [Catalytic activity/Vol] 33 U/L 10-42 [facility] Serum or plasma calcium praful urement (mass/volume)Ordered By: Kimber Lucas on 10-07-2022 Calcium [Mass/Vol] 8.9 mg/dL 8.2-10.2 [facility] Serum or plasma chloride yonatan surement (moles/volume)Ordered By: Kimber Lucas on 10-07-2022 Chloride [Moles/Vol] 97 mmol/L 95-114 [facility] Serum or plasma glucose praful urement (mass/volume)Ordered By: Kimber Lucas on 10-07-2022 Glucose [Mass/Vol] 86 mg/dL 70-100 [facility] Comment on above: ADA recommended refe rence rangeRandom Glucose Reference Range is dependent on time and content of last meal. Glucose of more than 200 mg/dL in a nonstressed, ambulatory subject supports the diagnosis of Diabetes Mellitus. Serum or plasma potassium me asurement (moles/volume)Ordered By: Kimber Lucas on 10-07-2022 Potassium [Moles/Vol] 3.3 mmol/L 3.5-5.1 [facility] Serum or plasma sodium measu rement (moles/volume)Ordered By: Kimber Lucas on 10-07-2022 Sodium [Moles/Vol] 135 mmol/L 136-146 [facility] Serum or plasma total biliru bin measurement (mass/volume)Ordered By: Kimber Lucas on 10-07-2022 Bilirubin [Mass/Vol] 0.7 mg/dL 0.3-1.2 [facility] Serum or plasma total carbon dioxide measurement (moles/volume)Ordered By: Kimber Lucas on 10-07-2022 CO2 [Moles/Vol] 29.2 mmol/L 22.0-30.0 [facility] Serum or plasma urea nitroge n measurement (mass/volume)Ordered By: Kimber Lucas on 10-07-2022 Urea nitrogen [Mass/Vol] 6 mg/dL 05-14 [facility] WBC Auto (Bld) [#/Vol]Ordere d By: Kimber Lucas on 10-07-2022 WBC (Bld) [#/Vol] 6.9 10*3/uL 4.1-10.5 [facility] XR hand RT min 3V*on 023 XR hand RT min 3V* [place] [address] XRay Report Signed Patient: Alejandra Bolden MR#: [id number] : 1970 Acct:[id number] Age/Sex: 52 / M ADM Date: 10/05/22 Loc: [place] Room: Type: [facility] Attending Dr: Kory Pennington Jr, DO Copies to: Kory Pennington DO Ordering Provider: Kory Pennington DO Date of Service: 10/05/22 XR/XR hand RT min 3V*: [facility] Attn: to 3rd, 4th and fifth fingers RIGHT HAND - 3 views REASON FOR EXAM: Generally injury at work. Now pain across metacarpal phalangeal joints with swelling. COMPARISON: None FINDINGS: Soft tissue swelling is noted. There is volar subluxation of the second and third MCP joints Severe degenerative changes of the CMC joint of the thumb. Moderate degenerative changes involving the DIP joint of the third digit. No bony erosions. XR/XR hand RT min 3V* IMPRESSION: SOFT TISSUE SWELLING IS NOTED WITH VOLAR SUBLUXATION OF THE SECOND AND THIRD MCP JOINTS. NO ACUTE FRACTURE IS SEEN. DEGENERATIVE CHANGES OF THE RIGHT HAND, WORST AT THE CMC JOINT OF THE THUMB.. Impression dictated by: Dimitry Pink Jr., D.O.10/05/2022 9:23 AM Dictation Location: [place] [address] Transcribed By: [facility] 10/05/22922 Dictated By: Dimitry Pink Jr, DO 10/05/22917 Signed By: 10/05/22922 Normal [facility] XR CHEST 2 Von 09-07-2022 XR CHEST 2 V EXAM: CHEST 2 VIEWS HISTORY: Cough TECHNIQUE: PA and lateral views chest. COMPARISON: None. FINDINGS: The lungs are clear. There is no focal lung consolidation, pleural effusion or pneumothorax. There is a right midlung granuloma. Pulmonary vasculature is within normal limits. The cardiomediastinal silhouette is normal. There are degenerative changes and mild anterior wedging in the thoracic spine. There is cervical spine fusion instrumentation. IMPRESSION: 1. Clear lungs without acute cardiopulmonary disease. Recommend followup imaging if symptoms worsen or persist. Electronically authenticated by: TEENA CONKLIN Date: 2022-09-07 09:01 Normal [facility] US Testicular/Scrotumon - US Testicular/Scrotum HISTORY: Right laura e lump FINDINGS: Right Testicle4.4 x 3.3 x 2.0 cm Left Testicle4.4 x 4.7 x 2.0 cm Normal testicular size. Normal vascularity, no suspicious intra-testicular mass. Bilateral punctate calcifications (microlithiasis). Normal epididymi. No hydrocele or varicocele formation. IMPRESSION: Bilateral microlithiasis, no suspicious mass or significant inflammation Report reported and signed by Dimitry Kelley on 11/09/[address] 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 INDICATIONS: Assessment of a cardiac cause: Hypertension, palpitations. CLINICAL HISTORY: The patient is a 51-year-old man with no known coronary artery disease. Previous cardiac history includes: None. Other previous history includes: Palpitations, alcohol, caffeine, smoker, hypertension, family history of coronary artery disease in mother. Symptoms just prior to testing include: None. Relevant medications: Carvedilol (Coreg), amlodipine (Norvasc). PROCEDURE: The patient performed treadmill exercise using a Sergo protocol, completing 3:43 minutes and completing an estimated workload of 5.40 metabolic equivalents (METS). The test was terminated due to fatigue and shortness of breath. The heart rate was 94 beats per minute at baseline and increased to 143 beats at peak exercise, which was 85% of the maximum predicted heart rate. The rest blood pressure was 140/82 mm/Hg and increased to 158/88 mm/Hg, which is a normal response. During the procedure, the patient developed fatigue, shortness of breath and leg fatigue, but denied chest discomfort. STRESS ECG RESULTS: The resting electrocardiogram demonstrated normal sinus rhythm without definitive ST-segment abnormalities suggestive of myocardial ischemia. At peak exercise and during recovery, the patient developed: No significant ST segment changes suggestive of myocardial ischemia with no premature atrial contractions (PACs) and no premature ventricular contractions (PVCs). IMPRESSION: No significant electrocardiographic evidence of myocardial ischemia during EKG monitoring without significant associated arrhythmias. The patient's Clemente Treadmill score is 3, which correlates with an intermediate risk significant coronary artery disease. Overall these results are most consistent with an intermediate risk for significant coronary artery disease. Based on the patient's abnormal exercise stress test results, a repeat study with the addition of cardiac imaging is recommended. The sensitivity for detecting ischemia on this test may have been reduced due to the patient being on a beta sanjana and a calcium channel sanjana. ADRIEL JOHN MD TATY/PHUONG_ROMMEL Doc#: Unknown CC: MARY JO Collins Normal [facility] MRI Lumbar Spine w/oon 09-02 MRI Lumbar Spine w/o HISTORY: Low back p ain with difficulty walking. Right second toe numbness. Back issues 3 years. TECHNIQUE: Routine lumbosacral spine MR protocol without gadolinium. Contrast: None. COMPARISON: Lumbar MRI 03/31/2018. RESULT: Counting reference: Lumbosacral junction. For the purposes of this report, L5-S1 is considered the last well-formed disc space. Alignment: Alignment is anatomic. Bone marrow signal/fracture: No evidence of pathologic marrow infiltration. No evidence of prior fracture. Endplate degenerative signal, especially at the L5-S1 level. Conus: The conus is within normal limits of signal intensity and morphology. Paraspinal soft tissues: Paraspinal soft tissues are within normal limits. Lower thoracic spine: Visualized lower thoracic canal and foramina are without significant narrowing. T12-L1: No significant canal or foraminal narrowing. L1-L2: No significant canal or foraminal narrowing. L2-L3: Broad-based disc bulge. No significant canal or foraminal narrowing. L3-L4: Broad-based disc bulge. No significant canal or foraminal narrowing. L4-L5: Broad-based disc bulge with superimposed central zone protrusion. Facet degenerative changes with facet joint effusions. Mild canal narrowing and mild left foraminal narrowing. Findings overall similar to prior MRI. L5-S1: Broad-based disc bulge with superimposed central zone protrusion. Disc height loss. Endplate osteophytes. Facet degenerative changes with facet joint effusions. Mild bilateral foraminal narrowing without significant canal narrowing. Findings overall similar to prior MRI. Sacrum and iliac wings: The visualized sacrum and iliac wings are within normal limits. The presacral soft tissues are normal in appearance. IMPRESSION: Degenerative changes lumbar spine, especially within the lower lumbar spine at L4-L5 and L5-S1, with appearance overall similar prior MRI from 03/31/2018. Report reported and signed by Cl Adrian on 09/02/2021 1641 Normal [facility] Specialist Vital Signs Date Time Vital Sign Value Performing Clinician Facility 09-03-2024 [id number] Body height 177.8 cm Divina Perez MD Work Phone: [facility] 09-03-2024 15:05-0500 Body mass index (BMI) [Ratio] 28.84 kg/m2 Divina Perez MD Work Phone: [facility] 09-03-2024 15:05-0500 Body weight 91.17 kg Divina Perez MD Work Phone: [facility] 09-03-2024 15:05-0500 Diastolic blood pressure 88 mm[Hg] Divina Perez MD Work Phone: [facility] 09-03-2024 15:05-0500 Heart rate 67 /min Divina Perez MD Work Phone: [facility] 09-03-2024 15:05-0500 SaO2% (BldA) [Mass fraction] 98 % Divina Perez MD Work Phone: [facility] 09-03-2024 15:05-0500 Systolic blood pressure 136 mm[Hg] Divina Perez MD Work Phone: [facility] 08-09-2024 12:28-0500 Body height 177.8 cm Steven Yergler 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 Work Phone: [facility] 08-09-2024 12:28-0500 Body mass index (BMI) [Ratio] 27.26 kg/m2 Steven Yergler 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 Work Phone: [facility] 08-09-2024 12:28-0500 Body weight 86.18 kg Steven Yergler 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 Work Phone: [facility] 08-09-2024 12:28-0500 Diastolic blood pressure 90 mm[Hg] Steven Yergler 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 Work Phone: [facility] 08-09-2024 12:28-0500 Heart rate 88 /min Steven Yergler 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 Work Phone: [facility] 08-09-2024 12:28-0500 Systolic blood pressure 134 mm[Hg] Steven Yergler 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 Work Phone: [facility] 07-30-2024 15:19-0500 Body height 177.8 cm Divina Perez MD Work Phone: [facility] 07-30-2024 15:19-0500 Body mass index (BMI) [Ratio] 27.41 kg/m2 Divina Perez MD Work Phone: [facility] 07-30-2024 15:19-0500 Body weight 86.64 kg Divina Perez MD Work Phone: [facility] 07-30-2024 15:19-0500 Diastolic blood pressure 84 mm[Hg] Divina Perez MD Work Phone: [facility] 07-30-2024 15:19-0500 Heart rate 52 /min Divina Perez MD Work Phone: [facility] 07-30-2024 15:19-0500 SaO2% (BldA) [Mass fraction] 98 % Divina Perez MD Work Phone: [facility] 07-30-2024 15:19-0500 Systolic blood pressure 128 mm[Hg] Divina Perez MD Work Phone: [facility] 10-08-2022 15:25-0500 Diastolic blood pressure 87 mm[Hg] MD Divina Perez Work Phone: [facility] 10-08-2022 15:25-0500 Heart rate 60 /min MD Divina Perez Work Phone: [facility] 10-08-2022 15:25-0500 Respiratory rate 16 /min MD Divina Perez Work Phone: [facility] 10-08-2022 15:25-0500 SaO2% (BldA) [Mass fraction] 93 % MD Divina Perez Work Phone: [facility] 10-08-2022 15:25-0500 Systolic blood pressure 139 mm[Hg] MD Divina Perez Work Phone: [facility] 10-08-2022 13:18-0500 Body height 177.8 cm MD Divina Perez Work Phone: [facility] 10-08-2022 13:18-0500 Body mass index (BMI) [Ratio] 26.3 kg/m2 MD Divina Perez Work Phone: [facility] 10-08-2022 13:18-0500 Body weight 83.3 kg MD Divina Perez Work Phone: [facility] 10-08-2022 11:12-0500 Body temperature 98.2 [degF] MD Divina Perez Work Phone: [facility] 10-06-2022 16:30-0500 Body height 177.8 cm Kimber Lucas Other [employer] Other 10-06-2022 16:30-0500 Body mass index (BMI) [Ratio] 26.54 kg/m2 Kimber Lucas Other [employer] Other 10-06-2022 16:30-0500 Body weight 83.92 kg Kimber Lucas Other [employer] Other Encounters Encounter Date Encounter Type Care Provider Facility Start: 09-12-2024 End: 09-12-2024 ambulatory MEGAN JOLLEY Not Available Start: 09-12-2024 End: 09-12-2024 Bamboo flowsheet Megan Jolley BRAKES INSPECTOR [facility] Start: 09-12-2024 End: 09-12-2024 Bamboo flowsheet Megan Jolley [employer] INSPECT[employer] [facility] Start: 09-04-2024 End: 09-05-2024 ambulatory Chidi Ja [employer] [facility] Comment on above: Spondylosis without myelopathy or radiculopathy, lumbar region (Primary Dx); Radiculopathy, lumbar region; Low back pain, unspecified back pain laterality, unspecified chronicity, unspecified whether sciatica present; Other chronic pain Start: 09-03-2024 End: 09-03-2024 Office outpatient visit 25 minutes Divina Perez MD Work Phone: [facility] Comment on above: Lumbosacral spondylo sis with myelopathy (Primary Dx); Lumbosacral spondylosis without myelopathy Start: 09-03-2024 End: 09-03-2024 ambulatory DIVINA PEREZ Not Available Start: 08-29-2024 End: 08-29-2024 ambulatory Melanie Watkins PT [facility] Comment on above: Spondylosis without myelopathy or radiculopathy, lumbar region (Primary Dx); Radiculopathy, lumbar region; Low back pain, unspecified back pain laterality, unspecified chronicity, unspecified whether sciatica present; Other chronic pain Start: 08-29-2024 End: 08-29-2024 Bamboo flowsheet Melanie Watkins PT [facility] Start: 08-29-2024 End: 08-29-2024 Bamboo flowsheet Melanie Watkins PT [facility] Start: 08-09-2024 End: 08-09-2024 Office outpatient new 45 minutes 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 Work Phone: [facility] Comment on above: Lumbar spondylosis ( Primary Dx); Chronic right-sided lumbar radiculopathy; Lumbosacral pain, chronic Start: 08-09-2024 End: 08-10-2024 Refill Adriana Snyder LPN [facility] Comment on above: Lumbosacral spondylo sis without myelopathy Start: 08-07-2024 End: 08-07-2024 ambulatory STEVEN M [facility] Start: 08-03-2024 ambulatory [facility] Start: 07-31-2024 End: 07-31-2024 Orders Only Stveen Grant 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 Work Phone: [facility] Comment on above: Low back pain, unspe cified back pain laterality, unspecified chronicity, unspecified whether sciatica present (Primary Dx) Start: 07-30-2024 End: 07-30-2024 Office outpatient visit 25 minutes Divina Perez MD Work Phone: [facility] Comment on above: Lumbosacral spondylo sis without myelopathy (Primary Dx) Start: 07-30-2024 End: 07-30-2024 ambulatory RUGEN M ANA Not Available Start: 07-11-2024 End: 07-11-2024 Patient encounter procedure Binu Sibley DO Work Phone: [facility] Comment on above: 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 Start: 07-11-2024 End: 07-11-2024 ambulatory BINU SIBLEY Not Available Start: 02-02-2024 End: 02-02-2024 ambulatory RUGEN M ANA Not Available Start: 01-03-2024 End: 01-03-2024 ambulatory RUGEN M ANA Not Available Start: 11-26-2022 End: 11-26-2022 ambulatory Kimber Calvey Other [employer] Other Start: 11-26-2022 Postop follow up vis it related to original px Kimber Calvey [facility] Start: 11-03-2022 End: 11-03-2022 ambulatory Kimber Calvey Other [employer] Other Start: 11-03-2022 Postop follow up vis it related to original px Kimber Calvey [facility] Start: 10-15-2022 End: 10-15-2022 ambulatory Kimber Calvey Other [employer] Other Start: 10-15-2022 Postop follow up vis it related to original px Kimber Calvey [facility] Start: 10-11-2022 End: 10-11-2022 ambulatory Kimber Calvey Other [employer] Other Start: 10-11-2022 Telephone encounter Kimber Calvey [facility] Start: 10-08-2022 End: 10-08-2022 ambulatory Rugen M Ana Facility:[facility] Start: 10-08-2022 End: 10-08-2022 Admission to same day surgery center MD Divina Perez Work Phone: [facility] [place] Start: 10-08-2022 End: 10-08-2022 ambulatory MD Divina Perez Work Phone: [facility] Work Phone: Start: 10-07-2022 End: 10-07-2022 ambulatory Divina Perez Facility:[facility] Start: 10-07-2022 End: 10-07-2022 ambulatory MD Divina Perez Work Phone: [facility] Work Phone: Start: 10-07-2022 End: 10-07-2022 Patient encounter procedure MD Divina Perez Work Phone: [facility] [facility] Work Phone: Start: 10-06-2022 End: 10-06-2022 ambulatory Kimber Lucas Other [employer] Other Start: 10-06-2022 Office outpatient ne w 45 minutes Kimber Lucas [facility] Start: 10-05-2022 End: 10-05-2022 ambulatory Kory Pennington Jr Facility:[facility] Start: 10-05-2022 End: 10-05-2022 ambulatory MD Divina Perez Work Phone: [facility] Work Phone: Start: 10-05-2022 End: 10-05-2022 Departed Referred MD Divina Perez Work Phone: [facility] [address] Work Phone: Start: 09-06-2022 End: 09-07-[address] DIVINA PEREZ Facility:[facility] Start: 08-19-2022 End: 08-20-2022 ambulatory LORRIE ARCHER Facility:[facility] Start: 05-13-2022 End: 05-14-2022 ambulatory LORRIE ARCHER Facility:[facility] Start: 02-17-2022 End: 02-18-2022 ambulatory LORRIE ARCHER Facility:[facility] Start: 01-12-2022 End: 01-12-[address] NASIMA COTO Facility:[facility] Start: 01-05-2022 End: 01-05-[address] NASIMA COTO Facility:[facility] Start: 12-24-2021 End: 12-25-2021 ambulatory LORRIE ARCHER Facility:[facility] Start: 12-08-2021 End: 12-08-[address] NASIMA COTO Facility:[facility] Start: 11-19-2021 End: 11-20-2021 ambulatory LORRIE ARCHER Facility:[facility] Start: 11-10-2021 End: 11-10-[address] NASIMA COTO Facility:[facility] Start: 10-28-2021 End: 10-29-2021 ambulatory LORRIE ARCHER Facility:[facility] Start: 10-20-2021 End: 10-21-2021 ambulatory SARAH Hernandez [facility] Start: 10-06-2021 End: 10-06-[address] NASIMA COTO Facility:[facility] Procedures Date Procedure Procedure Detail Performing Clinician Start: 10-08-2022 Plain X-ray of right hand MD Divina Perez Work Phone: Start: 10-08-2022 Arthroplasty of join t of the thumb MD Divina Perez Work Phone: Start: 10-08-2022 X-ray of index finger M Ashlee Perez Work Phone: Start: 10-05-2022 Plain X-ray of right hand MD Divina Perez Work Phone: Start: 07-23-2020 Colonoscopy Binu Caraballo DO Work Phone: Plan of Treatment Date Care Activity Detail Author Start: 07-23-2030 Screening for malignant neoplasm of colon [facility] Start: 08-09-2025 Adult BMI Screening Adult BMI Screen ing [facility] Start: 08-09-2025 Tobacco Screening Tobacco Screening [facility] Start: 09-12-2024 End: 09-12-2024 ambulatory 09/12/2024 3:00 PM EST Treatment [facility] [address] [place] [id number] Megan Jolley PTA Arrived [facility] Comment on above: Arrived Start: 09-10-2024 End: 09-10-2024 ambulatory 09/10/2024 3:00 PM EST Treatment [facility] [address] [facility] [address] [place] [address] Sanket Hale PTA [facility] Start: 09-04-2024 End: 09-04-2024 ambulatory [facility] Start: 09-03-2024 End: 09-03-2024 Patient encounter procedure 09/03/2024 3:00 PM EST Office Visit [facility] [address] [facility] [address] [place] [address] Divina Perez MD [address] [facility] [address] [place] [address] [facility] Start: 08-29-2024 End: 08-29-2024 ambulatory 08/29/2024 4:00 PM EST Evaluation [facility] [address] [facility] [address] [place] [address] Melanie Watkins, PT Spondylosis without myelopathy or radiculopathy, lumbar region (Primary Dx); Radiculopathy, lumbar region; Low back pain, unspecified back pain laterality, unspecified chronicity, unspecified whether sciatica present; Other chronic pain [facility] Comment on above: Spondylosis without myelopathy or radiculopathy, lumbar region (Primary Dx); Radiculopathy, lumbar region; Low back pain, unspecified back pain laterality, unspecified chronicity, unspecified whether sciatica present; Other chronic pain Start: 08-09-2024 End: 08-09-2025 MR Lumbar spine WO contrast MR lumbar spine without contrast Imaging Routine Lumbar spondylosis Chronic right-sided lumbar radiculopathy Lumbosacral pain, chronic Expected: 08/09/2024, Expires: 08/09/2025 [facility] Work Phone: Comment on above: Expected: 08/09/2024 , Expires: 08/09/2025 Start: 08-09-2024 End: 08-09-2024 Patient encounter procedure 08/09/2024 12:30 PM EST Office Visit [facility] [id number] [place] [address] Steven Grant, 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 [address] [place] [address] [facility] Start: 07-31-2024 End: 07-31-2025 XR Lumbar spine Views W flexion and W extension X-ray spine lumbar ap, lateral, flexion and extension only Imaging Routine Low back pain, unspecified back pain laterality, unspecified chronicity, unspecified whether sciatica present Expected: 07/31/2024, Expires: 07/31/2025 [facility] Work Phone: Comment on above: Expected: 07/31/2024 , Expires: 07/31/2025 Start: 04-22-2024 COVID-19 Vaccine ( season) COVID-19 Vaccine ( season) [facility] Start: 04-22-2024 Influenza vaccination Influenza Vacc ine [facility] Start: 10-08-2022 [facility] Start: 10-08-2022 [facility] Start: 07-23-2021 Screening for malignant neoplasm of colon Colonoscopy [facility] Start: 1989 DTaP,Tdap and Td Vaccines (1 - Tdap) DTaP,Tdap and Td Vaccines (1 - Tdap) [facility] Start: 02-22-1988 Adult BMI Follow Up Plan Adult BMI Follow Up Plan [facility] Start: 02-22-1988 Adult BMI Screening Adult BMI Screen ing [facility] Start: 1982 Depression Screening Depression Scre ening [facility] Start: 1982 Tobacco Screening Tobacco Screening [facility] Start: 1970 Screening for malignant neoplasm of colon [facility] Start: 1970 Tobacco Counseling Tobacco Counselin g [facility] Patient referral [facility] Work Phone: Immunizations Immunization Date Immunization Notes Care Provider Fa cility 06-14-2024 influenza, seasonal, injectable, preservative free Divina Perez MD Work Phone: [facility] 05-26-2023 influenza, injectabl e, quadrivalent, preservative free Binu Tesmond DO Work Phone: [facility] 05-26-2023 influenza virus vaccine, unspecified formulation 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 Work Phone: [facility] 08-19-2021 COVID-19 [id number] (Modernjeremy) MD Divina Perez Work Phone: [facility] 07-22-2021 COVID-19 mRNA-[id number] (Conor) MD Divina Perez Work Phone: [facility] 07-09-2021 influenza, injectabl e, quadrivalent, contains preservative Binu Tesmond DO Work Phone: [facility] 07-14-2020 zoster vaccine recombinant Binu Tesmond DO Work Phone: [facility] 07-14-2020 zoster vaccine, live Binu Tesmond DO Work Phone: [facility] 06-11-2020 influenza, injectabl e, quadrivalent, preservative free Binu Tesmond DO Work Phone: [facility] 06-04-2020 influenza, seasonal, injectable Binu Tesmond DO Work Phone: [facility] 04-30-2020 zoster vaccine recombinant Binu Tesmond DO Work Phone: [facility] 03-23-2018 unknown vaccine or immune globulin Binu Tesmond DO Work Phone: [facility] 04-05-2016 unknown vaccine or immune globulin Binu Tesmond DO Work Phone: [facility] 10-17-2014 unknown vaccine or immune globulin Binu Tesmond DO Work Phone: [facility] 06-19-2009 novel [id number], preservative-free, injectable Binu Tesmond DO Work Phone: [facility] 06-01-2008 influenza virus vaccine, whole virus Binu Sibley DO Work Phone: [facility] 06-06-2007 influenza virus vaccine, whole virus Binu Sibley DO Work Phone: [facility] 08-12-2000 influenza, injectable,quadrivalent , preservative free, pediatric Binu Sibley DO Work Phone: [facility] Payers Date Payer Category Payer Unknown [id number] 2022 Worker's Compensation [id number] 2022 Self-pay [id number] 2017 Blue Cross Blue Shield 1.2.8 [id number] 2017 [employer] Cross [employer] Managed Care - Other ANTH [id number] .[id number] 1970 Unknown [id number] 2.16.840.1.133939.3.579 .2.173 1970 Unknown [id number] 2.16.840.1.276375.3.579 .2.173 1970 Unknown [id number] 2.16.840.1.728388.3.579 .2.593 1970 Unknown [id number] 2.16.840.1.319704.3.579 .2.593 1970 Unknown [id number] 2.16.840.1.012104.3.579 .2.593 1970 Unknown [id number] 2.16.840.1.118469.3.579 .2.593 1970 Unknown [id number] 2.16.840.1.084420.3.579 .2.593 1970 Unknown [id number] 2.16.840.1.085186.3.579 .2.593 1970 Unknown [id number] 2.16.840.1.865080.3.579 .2.593 1970 Unknown [id number] 2.16.840.1.994656.3.579 .2.593 1970 Unknown [id number] 2.16.840.1.976847.3.579 .2.593 1970 Unknown [id number] 2.16.840.1.668520.3.579 .2.593 1970 Unknown [id number] 2.16.840.1.927287.3.579 .2.593 1970 Unknown [id number] 2.16.840.1.890535.3.579 .2.593 1970 Unknown [id number] 2.16.840.1.517185.3.579 .2.593 1970 Unknown [id number] 2.16.840.1.700173.3.579 .2.1286 1970 Unknown [id number] 2.16.840.1.793701.3.579 .2.1286 1970 Unknown [id number] 2.16.840.1.561647.3.579 .2.1286 1970 Unknown [id number] 2.16.840.1.367538.3.579 .2.1259 1970 Unknown [id number] 2.16.840.1.817346.3.579 .2.9 1970 Unknown [id number] 2.16.840.1.940066.3.579 .2.1258 1970 Unknown [id number] 2.16.840.1.379122.3.579 .2.9 1970 Unknown [id number] 2.16.840.1.973077.3.579 .2.1258 1970 Unknown [id number] 2.16.840.1.351230.3.579 .2.9 1970 Unknown [id number] 2.16.840.1.498041.3.579 .2.1258 1970 Unknown [id number] 2.16.840.1.122413.3.579 .2.1259 1959 Unknown [id number] Unknown [id number] 2.16.840.1.535968.3.579 .2.531 Unknown [id number] 2.16.840.1.313381.3.579 .2.531 Unknown [id number] 2.16.840.1.196346.3.579 .2.531 Worker's Compensation Industrial Self Ins [facility] [id number] Social History Date Type Detail Facility Start: 05-11-2021 End: 10-08-2022 Tobacco smoking status [facility] Smoker (finding) [facility] Start: 1970 Sex Assigned At Male [facility] Start: 01-19-2023 End: 09-03-2024 Sex Assigned At [facility] Caption Data Other Start: 01-19-2023 End: 08-09-2024 Tobacco smoking status [facility] Smokes tobacco daily [facility] History of tobacco use Cigarette Smoker [facility] Start: 01-19-2023 Tobacco use and exposure Smokeless tobacco non-user [facility] Start: 01-19-2023 End: 09-03-2024 History of Social function [facility] How often to you hav e a drink containing alcohol? 4 or more times a week [facility] How many standard drinks containing alcohol do you have on a typical day? 3 or 4 [facility] How often do you hav e 6 or more drinks on 1 occasion? Daily or almost daily [facility] Start: 1970 Sex assigned at Not on file [facility] Start: 07-08-2020 End: 08-09-2024 Tobacco use and exposure User of smokeless tobacco [facility] History of tobacco use [facility] Start: 07-01-2021 End: 08-09-2024 Alcoholic beverage intake Current drinker of alcohol (finding) [facility] Childcare Unknown [facility] Start: 06-24-2021 Alcohol Comment [facility] [employer] [facility] Start: 04-12-2018 Sex Male (finding) [facility] Medical Equipment Procedure Code Equipment Code Equipment Origin al Text Equipment Identifier Dates Impl Dlv Sys Dis karma Biceps - Sna - [id number] Start: 06-27-2019 Goals Date Patient Goal Desired Activity /State Clinical Notes 11-19-2021 to 09-03-2024 Divina Perez MD - 09/03/2024 3:37 PM Kaylen Perez MD - 09/03/2024 3:36 PM Kaylen Perez MD - 09/03/2024 3:00 PM ESTSammadamion Watkins PT - 08/29/2024 4:00 PM ESTPatient Instructions Note Date & Type Note Facility 09-03-2024 History of Presen t illness Narrative Associated Problem(s): Lumbosacral spondylosis with myelopathy Suspect nerve impingement innervating upper abdomen Associated Problem(s): Lumbosacral spondylosis without myelopathy Has PT Pain Contract signed Has MRI Images from the original note were not included. Subjective Patient ID: Alejandra Bolden is a 54 y.o. male who presents for Back Pain. Pt starts PT tomorrow and did see the neuro dr and is going to have an MRI when insurance approves this Pt states his back is not really any better , he states when his back starts to hurt it will also hurt in his stomach area Pt would like refill on the pain med if possible Current Outpatient Medications on File Prior to Visit Medication Sig Dispense Refill albuterol HFA 90 mcg/act inhaler INHALE 2 PUFFS BY MOUTH EVERY 6 HOURS NEEDED FOR 30 DAYS 18 g 5 amLODIPine (Norvasc) 10 MG tablet TAKE 1 TABLET BY MOUTH EVERY DAY 100 tablet 3 aspirin (Aspir-Low) 81 MG EC tablet Take by mouth 1 (one) time each day at the same time. carvedilol (Coreg) 25 MG tablet TAKE 1 TABLET BY MOUTH TWICE A DAY WITH FOOD 180 tablet 4 cloNIDine (Catapres) 0.2 MG tablet TAKE 1 TABLET BY MOUTH TWICE A DAY 200 tablet 4 furosemide (Lasix) 20 MG tablet TAKE 1 TABLET (20 MG) BY MOUTH IN THE MORNING AND BEFORE BEDTIME 200 tablet 3 naproxen sodium (Aleve) 220 MG tablet Take 220 mg by mouth every 12 (twelve) hours. PRN tiZANidine (Zanaflex) 4 MG capsule Take 1 capsule (4 mg) by mouth in the morning and 1 capsule (4 mg) in the evening and 1 capsule (4 mg) before bedtime. 90 capsule 0 [DISCONTINUED] HYDROcodone-acetaminophen (Independence) 5-325 MG tablet Take 1 tablet by mouth every 6 (six) hours if needed for severe pain for up to 5 days 20 tablet 0 No current facility-administered medications on file prior to visit. I have reviewed and reconciled the history and medication list with the patient today. No Known Allergies Social History Tobacco Use Smoking status: Every Day Current packs/day: 0.50 Types: Cigarettes Smokeless tobacco: Never Substance Use Topics Drug use: Never Family History Problem Relation Name Age of Onset Hypertension Mother Heart disease Mother Stroke Mother Diabetes Mother Cancer Father Past Medical History: Diagnosis Date Abnormal ECG Arthritis Cancer (CMS/HCC) Carpal tunnel syndrome Diverticulosis Dysphagia Hypertension (CMS/HCC) Sensorineural hearing loss Past Surgical History: Procedure Laterality Date CARPAL TUNNEL RELEASE Left 12/17/2020 CARPAL TUNNEL RELEASE Right 07/01/2021 COLONOSCOPY 07/23/2020 COLONOSCOPY W/ BIOPSIES 05/11/2021 MALIGNANT SKIN LESION EXCISION VASECTOMY Visit Vitals BP 136/88 Pulse 67 Ht 5' 10 Wt 201 lb SpO2 98% BMI 28.84 kg/m Smoking Status Every Day BSA 2.12 m Review of Systems Constitutional: Negative for chills and fever. Breasts: Breast soreness since starting Hydralazine Respiratory: Negative for shortness of breath. Cardiovascular: Negative for chest pain. Gastrointestinal: Negative for constipation, diarrhea, nausea and vomiting. Musculoskeletal: Positive for back pain. Negative for gait problem. Neurological: Negative. Negative for dizziness, facial asymmetry and numbness. Objective Physical Exam Vitals reviewed. Constitutional: Appearance: Normal appearance. HENT: Head: Normocephalic. Neck: Vascular: No carotid bruit. Cardiovascular: Rate and Rhythm: Normal rate and regular rhythm. Pulses: Normal pulses. Pulmonary: Effort: Pulmonary effort is normal. Breath sounds: Normal breath sounds. Chest: Comments: Has some pinpoint tenderness Musculoskeletal: Comments: Uncomforable Neurological: General: No focal deficit present. Mental Status: He is alert and oriented to person, place, and time. Psychiatric: Mood and Affect: Mood normal. Assessment/Plan Problem List Items Addressed This Visit Lumbosacral spondylosis without myelopathy Has PT Pain Contract signed Has MRI Relevant Medications HYDROcodone-acetaminophen (Independence) 5-325 MG tablet Lumbosacral spondylosis with myelopathy - Primary Suspect nerve impingement innervating upper abdomen Follow up in about 4 weeks (around 10/01/2024). documented in this encounter [facility] 08-29-2024 History of Presen t illness Narrative Images from the original note were not included. Physical Therapy Evaluation Visit Patient Name: Alejandra Bolden Today's Date: 08/29/2024 Encounter Diagnoses Name Primary? Spondylosis without myelopathy or radiculopathy, lumbar region Yes Radiculopathy, lumbar region Low back pain, unspecified back pain laterality, unspecified chronicity, unspecified whether sciatica present Other chronic pain Visit number: 1 Timed Code Treatment Minutes: 40 minutes Total Treatment Time: 50 minutes Time In: 1550 Time Out: 1644 History: Pt states he has arthritis, stenosis, and bulging disc in his low back. Pt states he has had multiple abdominal and pelvic scans due to having a lot of pain just below his belt line in the front. Pt states he goes to bed and sleeps just fine; however, once he gets up and on his feet for too long he starts to feel pain in the front of his pelvis. Has been getting dry needling to right lumbar and SIJ without relief. Precautions: [place] Subjective: right low back and SI pain, anterior pelvic pain Pain: 03/31 Objective: PT Evaluation (08/29/2024) LUMBAR SPINE AROM: flex fingers to mid echols with increase right LB pain, increase pain at end range extension but less than flexion, increase pain at end range right SB, full left SB without ERP Joint play: Pain with PA pressure to L4; not radicular pain. Decrease mobility right SIJ; no significant pelvic instability Strength: right hip ER and abduction 4 to 4+/5; core strength is good/fair Palpation: Moderate to severe tenderness right SIJ and piriformis region Special Test: negative SLR Neurological: Reflexes: not tested Myotomes: negative bilateral Dermatomes: negative bilateral Special Test: negative clonus Treatment: Education: HEP education with demonstration, Educated on Eval Findings and POC Manual Therapy: Passive ROM, Joint mobilization, Soft Tissue Mobilization, Myofascial Release, Muscle Energy Technique, Neural Mobilization, Myofascial Cupping, Dry Needling, IASTM, and Scar mobilization as needed. Therapeutic Exercise: (24 minutes) Strength, Endurance, Flexibility, ROM, HEP, Neural Mobilization, Power, and Core Stability as needed. Pt performed and instructed in home program this date; written instructions and pictures issued with good pt understanding. Therapeutic Activity: Exercises to improve dynamic activities, functional tasks, functional mobility to return to prior activity level as needed. Neuromuscular re-education: Balance Training, Muscle Facilitation, Dynamic Stability, Core Stabilization, and Blood Flow Restriction Training (BFRT) as needed. Modalities: Heat, Ice, Electrical Stimulation, Ultrasound, Cervical Mechanical Traction, Lumbar Mechanical Traction, Iontophoresis, and Fluidotherapy as needed. Assessment: Pt is 54 y/o male with complaints of right low back and anterior pelvic pain. Pt with hypomobility right SIJ. Moderate to severe tenderness right SIJ and piriformis. Limited trunk ROM due to pain. Pt will benefit from further PT to address deficits. Outcome Measure: Back Index: 28/50 Rehab Diagnosis: right low back pain, decrease core and hip strength; difficulty walking Short Term Goal: To be met in 2 weeks Goal 1: Pt to be instructed in home exercise program. Care Home Goals: To be met in 10 weeks Goal 1: Pt to report independence and compliance with home program. Goal 2: Pt to have full trunk ROM without complaints of increase pain at end ranges to assist with functional tasks. Goal 3: Pt to report pain no greater than 2/10 with function tasks, ADL's, and work related activities. Goal 4: Pt to score no greater than 14/50 on Back Index indicating improved QOL. Pt will benefit from skilled PT for 2x/week from 08/29/2024 to 11/07/2024 to address the above impairments. I hereby deem this POC medically necessary. Please sign below. Date: documented in this encounter [facility] 08-10-2024 Telephone encount er Note OARRS reviewed, Rx sent into patient's pharmacy. [facility] 08-10-2024 Miscellaneous Notes Formattin g of this note might be different from the original. OARRS reviewed, Rx sent into patient's pharmacy. documented in this encounter [facility] 08-09-2024 History of Presen t illness Narrative Images from the original note were not included. [facility] [address] [facility] [id number] Subjective Patient ID: Alejandra Bolden is a 54 y.o. male. Encounter Date: 08/09/2024 CHIEF COMPLAINT Chief Complaint Patient presents with Consult New patient, lumbar, xrays in chart HISTORY OF PRESENT ILLNESS HPI Alejandra Bolden is a new patient to [facility] who was referred in regards to chronic low back pain that has progressively worsened over the years. He reports chronic right lumbosacral pain adjacent to his sacroiliac joint(points to his glute medius muscle). This is most bothersome to him. He reports there is constant pain and then he gets sharp, stabbing pain with certain movements. He had injections through pain management for this last year that only helped for 2-3 weeks. He only has relief when using ice or laying flat but when he turns over it wakes him. His Chiropractor did pull on his leg and got something to pop which helped but then he was not able to get it to pop again. They also did dry needling which helped initially then stopped working. He reports his midline lumbar pain has not seemed as bad since prior ablations and bothers him more the longer he is on his feet and with bending and steps. He does get pain centered in his suprapubic region at his belt level that feels like it comes straight through from his back x 6 months. He denies wrapping pain. When this pain occurs he has to release the button of his pants. He developed brief, intermittent shooting down his right thigh in the spring and he can go a couple days without it occurring. He was started on Tizanidine, Prednisone and Independence by his PCP on 07/30/2024. The Independence helps the right lumbosacral pain and Prednisone seems to help his midline lumbar pain. 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 Duration/Initial inciting event: Symptoms are chronic without prior injury. E spring 2023 Weakness: denies in legs Cauda equina/Myelopathy symptoms: patient denies new bowel/bladder dysfunction, saddle anesthesia, balance problems, fine motor difficulty or loss of coordination. The patient symptoms were not brought on by any discrete episode of injury or trauma to the spine. Was not associated with a new illness or viral syndrome. The symptoms are not associated with any concerning constitutional symptoms such as fever, rash, unexplained change in weight or appetite. There are no new night sweats. Patient denies history of illicit drug abuse/IV drug use. He does use THC gummies to sleep. Current and prior evaluation and treatments: -Medication trials for this problem: Tizanidine, Prednisone and Independence BID (NSAIDs upset his stomach, he cannot take Independence at night as it keeps him awake) - Alternative methods to treatment: ice -Physical therapy/Home exercise program: PT couple years ago, no regular stretching -home care specialist: x 8-10 years [facility] in [place]-weekly for last few months hit or miss with relief-dry needling tried and helped briefly -Pain management: [facility] last in 2022 Likely right sacroiliac injections only lasted 2-3 weeks Lumbar ablations helped midline lumbar pain and still seems to have some ongoing relief Shreyas Mohr in 2018 right L3-S1 MBB x 2 -Pertinent spine surgeries/previous consults: Cervical fusion Dr Boston early s [address] Boston -Pertinent comorbid conditions: tobacco smoker -Summary of spine imaging findings: -lumbar: spondylosis, L4-S1 disc protrusions PERTINENT IMAGING/DIAGNOSTIC TESTING X-ray spine lumbar ap, lateral, flexion and extension only Result Date: 08/07/2024 FINDINGS: Satisfactory alignment of the lumbar spine. No pathologic motion on flexion and extension views. Vertebral body heights are preserved. No compression fracture. Moderate degenerative changes at L4-5 and L5-S1 with intervertebral disc space height loss, osteophyte formation, and facet hypertrophy. SI joints are symmetric. IMPRESSION: 1. No acute findings. 2. Moderate degenerative changes at L4-5 and L5-S1 as above. 3. No pathologic motion on flexion and extension views. MRI lumbar 09/02/2021 [facility] RESULT: Counting reference: Lumbosacral junction. For the purposes of this report, L5-S1 is considered the last well-formed disc space. Alignment: Alignment is anatomic. Bone marrow signal/fracture: No evidence of pathologic marrow infiltration. No evidence of prior fracture. Endplate degenerative signal, especially at the L5-S1 level. Conus: The conus is within normal limits of signal intensity and morphology. Paraspinal soft tissues: Paraspinal soft tissues are within normal limits. Lower thoracic spine: Visualized lower thoracic canal and foramina are without significant narrowing. T12-L1: No significant canal or foraminal narrowing. L1-L2: No significant canal or foraminal narrowing. L2-L3: Broad-based disc bulge. No significant canal or foraminal narrowing. L3-L4: Broad-based disc bulge. No significant canal or foraminal narrowing. L4-L5: Broad-based disc bulge with superimposed central zone protrusion. Facet degenerative changes with facet joint effusions. Mild canal narrowing and mild left foraminal narrowing. Findings overall similar to prior MRI. L5-S1: Broad-based disc bulge with superimposed central zone protrusion. Disc height loss. Endplate osteophytes. Facet degenerative changes with facet joint effusions. Mild bilateral foraminal narrowing without significant canal narrowing. Findings overall similar to prior MRI. Sacrum and iliac wings: The visualized sacrum and iliac wings are within normal limits. The presacral soft tissues are normal in appearance. Impression Degenerative changes lumbar spine, especially within the lower lumbar spine at L4-L5 and L5-S1, with appearance overall similar prior MRI from 03/31/2018. The following portions of the patient's history were reviewed and updated as appropriate: allergies, current medications, past family history, past medical history, past social history, past surgical history and problem list. ALLERGIES No Known Allergies MEDICATIONS Current Outpatient Medications: amLODIPine (NORVASC) 10 mg tablet, Take 1 tablet (10 mg total) by mouth in the morning., Disp: , Rfl: aspirin 81 mg, Take 1 tablet (81 mg total) by mouth in the morning., Disp: , Rfl: carvedilol (COREG) 25 mg tablet, Take 1 tablet (25 mg total) by mouth in the morning and 1 tablet (25 mg total) before bedtime., Disp: , Rfl: 2 cloNIDine (CATAPRES) 0.1 mg tablet, Take 2 tablets (0.2 mg total) by mouth in the morning and 2 tablets (0.2 mg total) before bedtime., Disp: , Rfl: 4 furosemide (LASIX) 20 mg tablet, Take 1 tablet (20 mg total) by mouth 2 (two) times a day., Disp: , Rfl: HYDROcodone-acetaminophen (NORCO) 5-325 mg per tablet, TAKE 1 TABLET BY MOUTH EVERY 6 HOURS NEEDED FOR SEVERE PAIN FOR UP TO 5 DAYS, Disp: , Rfl: predniSONE (DELTASONE) 10 mg tablet, Take by mouth., Disp: , Rfl: tiZANidine (ZANAFLEX) 4 mg tablet, 1 tablet (4 mg total) 3 (three) times a day., Disp: , Rfl: VENTOLIN HFA 90 mcg/actuation inhaler, Inhale 2 puffs every 6 (six) hours as needed., Disp: , Rfl: (All medications reviewed and updated) PAST MEDICAL HISTORY Past Medical History: Diagnosis Date Arthritis Dental disease HTN (hypertension) Irregular heart beat Skin cancer slow growing Sleep apnea cpap Visual impairment reading SOCIAL HISTORY Social History Occupational History Not on file Tobacco Use Smoking status: Every Day Current packs/day: 0.50 Average packs/day: 0.5 packs/day for 30.0 years (15.0 ttl pk-yrs) Types: Cigarettes Smokeless tobacco: Current Types: Snuff Vaping Use Vaping status: Never Used Substance and Sexual Activity Alcohol use: Yes Alcohol/week: 7.0 standard drinks of alcohol Types: 7 Cans of beer per week Comment: daily Drug use: Yes Comment: THC gummies to sleep Sexual activity: Defer REVIEW OF SYSTEMS Review of Systems Constitutional: Negative for chills, diaphoresis, fever and unexpected weight change. Gastrointestinal: Fecal incontinence denied Genitourinary: Negative for difficulty urinating. Denies saddle anesthesia or bladder control issues Musculoskeletal: Positive for back pain. Neurological: Negative for weakness and numbness. Psychiatric/Behavioral: Positive for sleep disturbance. Negative for dysphoric mood and suicidal ideas. PHYSICAL EXAMINATION Objective Vitals: BP 134/90 Pulse 88 Ht 177.8 cm (5' 10 ) Wt 86.2 kg (190 lb) BMI 27.26 kg/m Physical Exam Constitutional: General: He is not in acute distress. Appearance: He is not ill-appearing, toxic-appearing or diaphoretic. Cardiovascular: Rate and Rhythm: Normal rate. Pulmonary: Effort: Pulmonary effort is normal. Musculoskeletal: Comments: No lumbar spinous process, SIJ, lateral hip or piriformis tenderness present. + right glute medius tenderness. Back ROM normal without increased pain unless noted otherwise: Flexion restricted due to right lumbosacral pain Back extension Side bending to right painful right lumbosacral Rotation Stork test is negative for SIJ but painful right glute medius SLR is negative but on right with minimal raise he had significant right lumbosacral pain Log Roll Negative He was unable to tolerate hip flexion to check LAUREN or sacral thigh thrust and strength testing was painful Muscle strength: 5/5 bilaterally unless noted otherwise: -Resisted scapular elevation -Deltoids -Shoulder abduction -Shoulder adduction -Biceps/elbow flexion -Triceps/elbow extension -Wrist extension -Wrist flexion -First Dorsal Interosseous -Abductor Digiti Minimi -Hand grasps -Iliopsoas -Quadriceps -Hamstrings 4+ right -Hip adductors -Hip abductors 4+ right -Tibialis anterior -Tibialis posterior Standing on heels normal Standing on tip toes normal Neurological: Mental Status: He is alert. Deep Tendon Reflexes: Reflex Scores: Patellar reflexes are 1+ on the right side and 1+ on the left side. Achilles reflexes are 0 on the right side and 1+ on the left side. Comments: Rushing's negative Clonus negative Sensation equal and intact BLE BEHAVIORAL SCREENING, RED/YELLOW FLAGS Elective Fusion Surgery: Yes (cervical) Medical Marijuana/CBD use: Yes Daily MME: 0 [place] Disability Score- Back: 40% moderate CCSM Screening: II, V, XIII RED FLAGS Red Flags Fever: No Night Sweats: No Unintended Weight Loss: No History of Cancer: Yes Type of Cancer: skin Immunocompromised?: No Substance Abuse- Active: No Substance Abuse- Prior History: No Cauda Equina Symptoms: None YELLOW FLAGS Yellow Flag Symptomatic Depression: No Active major thought disorder: No Excessive Narcotic Use/ MEW >30 per day: No Current average daily MEQ: 3.33 OARRS/MAPS Report Red Flags: Nothing Listed Work Dissatisfaction: Yes ASSESSMENT/ PLAN Assessment 1. Lumbar spondylosis 2. Chronic right-sided lumbar radiculopathy 3. Lumbosacral pain, chronic Plan 1. Lumbar spondylosis - MR lumbar spine without contrast; Future - Ambulatory referral to Physical Therapy (Non-[facility]); Future 2. Chronic right-sided lumbar radiculopathy - MR lumbar spine without contrast; Future - Ambulatory referral to Physical Therapy (Non[facility]); Future 3. Lumbosacral pain, chronic - MR lumbar spine without contrast; Future - Ambulatory referral to Physical Therapy (Non[facility]); Future X-ray imaging reviewed with patient. Disc space narrowing in the lumbar spine is greatest from L4-S1. There is multilvel facet arthritis and endplate spurring also greatest in the lower lumbar spine. There is no instability noted with flexion or extension. His MRI in 2021 showed multilevel disc bulging and a central disc protrusion at L4-5 and L5-S1. He also had retrolisthesis at L5-S1 that is not apparent on recent x-ray. Patient has chronic right glute medius pain. He has midline lumbar pain and intermittent right anterior thigh radiation. His pain is interfering with work, sleep and daily activities. He has been going to Chiropractic for many years. Sometimes adjustments help. Dry needling helped initially then stopped working. Injections helped his right sided pain for 2-3 weeks and he seems to have some lasting benefit of his midline lumbar pain from prior ablations. He was unable to tolerate SLR or hip/SIJ exam due to reproducing his pain. Strength testing was also painful. He has mild 4+ right hamstring and hip abductor weakness. There is no sensory deficit. He has 1+ bilateral patellar, absent right/1+ left achilles reflexes. I have ordered MRI imaging to further evaluate for compressive pathology that may cause referred pain to his right glute medius, anterior thigh and anterior pelvis (suspect right L4 radiculopathy). He is agreeable to try PT and I provided him home exercises he can let pain be his guide with. I will likely have Dr Vasques review imaging once complete as he has already tried pain management. Recommendations Lumbar MRI [facility]-patient advised to call office once complete so we can push images PT [facility] in [place] JOSSUE to [facility] Home exercise program (HEP) provided and reviewed with the patient: Recommend: Stretches: 1-2 times daily, Strengthening Exercises: 3 times per week Lumbar: Double knee to chest, prayer stretch, IT band stretch, prone hip extension with bent knee, piriformis, quadriped arm/leg raises, hamstring, hip flexor, single knee to chest, prop up on elbows, cat camel stretch, pelvic tilt, tail wag, lumbar rotation, trunk stability/core: hook lying combination and bent leg lift, SLR, bridge, partial curl Follow up: pending imaging The patient was instructed to call if worsening or not improving. I educated the patient on s/s and provided information in the AVS regarding cauda equina and myelopathy if pertinent. I advised the patient to go to the ER if these symptoms occur. The OARRS/MAPPS database was reviewed today and found to be appropriate. No indication of medication diversion, or non compliance. Smoking cessation provided in patient's AVS if pertinent. Patient noted to have elevated BMI which can contribute to disc degeneration. A healthy weight is recommended for spine health. The following intervention(s) were applied: encouragement to exercise.The BMI is above average; BMI management plan is completed. Thank you for the referral. KEYANA Green (Cryan)-[facility] All questions were answered during the encounter and the patient was in agreement with plan of care. This office visit was spent face to face with the patient addressing counseling/education, reviewing test results if noted, instructions for management, treatment options and importance of compliance with treatment, performing medically appropriate examination and or coordination of care. CLARITA Drew 08/09/24 [id number] documented in this encounter [facility] [employer] [facility] 08-09-2024 Instructions CLARITA Drew - 08/09/2024 12:30 PM EST When your neck or back is hurting, it can affect everything you do. Whether you've had a recent minor injury or your pain has slowly developed over time, there are some things you can do at home to help ease the pain. In addition to home remedies, there are many conservative treatments to try before surgery is considered. In fact, some people aren't good candidates for surgery. Non-surgical treatments may help to improve your pain and include: physical therapy, home exercise program, prescription medications and or pain management. Here are some tips for managing spine pain at home: Keep moving. When you're in pain, the last thing you want to do is move, but this will make the pain worse over time. Make time each day for some physical activity to keep joints lubricated, muscles engaged and blood flowing. Improve your posture. Whether you're seated or standing, be mindful of having good posture throughout the day. Focus on keeping your spine in a neutral position and keeping it supported. Utilize heat and ice. Alternate heat and ice on the affected area. Heat will help loosen tight muscles and increase blood flow, while ice will help reduce inflammation. Apply each for 15 to 20 minutes before switching to the other temperature. Take [id number] medicines. The use of cuqs-jps-ywopzkx anti-inflammatory medications, creams, ointments and patches can help relieve pain. TENS unit. Transcutaneous electrical nerve stimulation (TENS) uses electrodes to distribute a mild electrical current. This helps block pain signals. Complementary therapies. Therapies such as massage and acupuncture can help stimulate blood flow, which is essential for a healthy spine. They can also release endorphins and relax tense muscles. If you smoke, quit smoking. Nicotine has many negative effects on the body, including inflammation and constricting blood vessels. This reduces the amount of blood and nutrients that are distributed throughout the body, including the spine. Maintaining a healthy weight. Excess weight can impact the natural curve of the spine, press on the shock-absorbing discs between the vertebrae and cause them to become herniated, pinched, or cause pressure on the nerves that travel through the central canal, and or strain the muscles and ligaments that support your back. It can also lead to the development of arthritis in your low back. Common conditions that can contribute to neck, back or spine pain include: Degenerative disc disease: As we age, our discs begin to lose fluid content, wear away and shrink. Facet joint arthritis: Arthritis that affects the joints that are located on the back of the spine and assist with bending, twisting and alignment. As the disc shrinks and our joints lose the fluid that lubricates them, the bones can start to rub together causing pain and bulging discs. Spinal stenosis: Herniated or bulging discs and degeneration can cause a narrowing of the spinal canal, which can puts pressure on the spinal cord and other nerves. Compression fractures: Typically, this is a result of age-related degeneration or osteoporosis. The spinal vertebrae get small cracks, causing them to collapse. Radiculopathy: Commonly known as a pinched nerve, this condition may cause numbness, tingling, pain or weakness in your arms of legs. Sciatica is one example of this where the sciatic nerve in the low back causes symptoms down the back of the legs. Pinched nerves can be caused by any of the conditions listed above. When to notify your medical record specialist: If your neck pain or back pain does not improve or worsens. If you develop new or worsening arm or leg pain or numbness. If you develop new or worsening weakness. (If it is severe where you cannot lift your extremity you may also need to go to the emergency room) If you have develop Cauda equina symptoms: difficulty controlling your bowel or bladder (leaking without having urge or difficulty emptying). It may also cause numbness or tingling in your genital or rectal region. This may also require a trip to the emergency room. If you develop balance issues, feel unsteady on your feet or clumsiness of the arms, hands or legs. The following attachments cannot be sent through Care Everywhere.Quitting Smoking ED ([place]zech)documented in this encounter [facility] 07-30-2024 History of Presen t illness Narrative Associated Problem(s): Lumbosacral spondylosis without myelopathy ST disability Refer to Dr. Vasques Images from the original note were not included. Subjective Patient ID: Alejandra Bolden is a 54 y.o. male who presents for Hypertension and Back Pain. Pt has went to chiropractor, and has tried multiple other things and nothing has helped , it is hard for him to go to work missing one day a week Pt did go to pain managament this did not help him Hypertension This is a chronic problem. The current episode started more than 1 year ago. The problem has been gradually improving since onset. The problem is controlled. Pertinent negatives include no chest pain or shortness of breath. Past treatments include calcium channel blockers, beta blockers and alpha 1 blockers. The current treatment provides mild improvement. There is no history of CAD/LA, CVA or PVD. There is no history of chronic renal disease or renovascular disease. Back Pain This is a chronic problem. The current episode started more than 1 year ago. The problem occurs constantly. The problem is unchanged. The symptoms are aggravated by twisting and bending. Stiffness is present All day. Pertinent negatives include no chest pain, fever, numbness or tingling. He has tried chiropractic manipulation, ice, NSAIDs, walking, muscle relaxant, heat and bed rest for the symptoms. The treatment provided no relief. Current Outpatient Medications on File Prior to Visit Medication Sig Dispense Refill albuterol HFA 90 mcg/act inhaler INHALE 2 PUFFS BY MOUTH EVERY 6 HOURS NEEDED FOR 30 DAYS 18 g 5 amLODIPine (Norvasc) 10 MG tablet TAKE 1 TABLET BY MOUTH EVERY DAY 100 tablet 3 aspirin (Aspir-Low) 81 MG EC tablet Take by mouth 1 (one) time each day at the same time. carvedilol (Coreg) 25 MG tablet TAKE 1 TABLET BY MOUTH TWICE A DAY WITH FOOD 200 tablet 3 cloNIDine (Catapres) 0.2 MG tablet TAKE 1 TABLET BY MOUTH TWICE A DAY 200 tablet 4 furosemide (Lasix) 20 MG tablet TAKE 1 TABLET (20 MG) BY MOUTH IN THE MORNING AND BEFORE BEDTIME 200 tablet 3 naproxen sodium (Aleve) 220 MG tablet Take 220 mg by mouth every 12 (twelve) hours. PRN [DISCONTINUED] ibuprofen 800 MG tablet TAKE 1 TABLET BY MOUTH THREE TIMES A DAY WITH FOOD OR MILK NEEDED FOR 30 DAYS [DISCONTINUED] tiZANidine (Zanaflex) 4 MG capsule Take 4 mg by mouth in the morning and 4 mg in the evening and 4 mg before bedtime. No current facility-administered medications on file prior to visit. I have reviewed and reconciled the history and medication list with the patient today. No Known Allergies Social History Tobacco Use Smoking status: Every Day Current packs/day: 0.50 Types: Cigarettes Smokeless tobacco: Never Substance Use Topics Drug use: Never Family History Problem Relation Name Age of Onset Hypertension Mother Heart disease Mother Stroke Mother Diabetes Mother Cancer Father Past Medical History: Diagnosis Date Abnormal ECG Arthritis Cancer (CMS/HCC) Carpal tunnel syndrome Diverticulosis Dysphagia Hypertension (CMS/HCC) Sensorineural hearing loss Past Surgical History: Procedure Laterality Date CARPAL TUNNEL RELEASE Left 12/17/2020 CARPAL TUNNEL RELEASE Right 07/01/2021 COLONOSCOPY 07/23/2020 COLONOSCOPY W/ BIOPSIES 05/11/2021 MALIGNANT SKIN LESION EXCISION VASECTOMY Visit Vitals BP 128/84 Pulse 52 Ht 5' 10 Wt 191 lb SpO2 98% BMI 27.41 kg/m Smoking Status Every Day BSA 2.07 m Review of Systems Constitutional: Negative for chills and fever. Breasts: Breast soreness since starting Hydralazine Respiratory: Negative for shortness of breath. Cardiovascular: Negative for chest pain. Gastrointestinal: Negative for constipation, diarrhea, nausea and vomiting. Musculoskeletal: Positive for back pain. Negative for gait problem. Neurological: Negative. Negative for dizziness, tingling, facial asymmetry and numbness. Objective Physical Exam Vitals reviewed. Constitutional: Appearance: Normal appearance. HENT: Head: Normocephalic. Neck: Vascular: No carotid bruit. Cardiovascular: Rate and Rhythm: Normal rate and regular rhythm. Pulses: Normal pulses. Pulmonary: Effort: Pulmonary effort is normal. Breath sounds: Normal breath sounds. Chest: Comments: Has some pinpoint tenderness Neurological: General: No focal deficit present. Mental Status: He is alert and oriented to person, place, and time. Psychiatric: Mood and Affect: Mood normal. Assessment/Plan Problem List Items Addressed This Visit Lumbosacral spondylosis without myelopathy - Primary ST disability Refer to Dr. Vasques Relevant Medications HYDROcodone-acetaminophen (Independence) 5-325 MG tablet predniSONE (Deltasone) 10 MG tablet tiZANidine (Zanaflex) 4 MG capsule Other Relevant Orders Ambulatory referral to Neurosurgery Follow up in about 4 weeks (around 08/27/2024). documented in this encounter [facility] 07-11-2024 History of Presen t illness Narrative Pt presents today for a random Audiogram for Ventra. Pt verified by photo ID. Examination General Examination: General Examination: in no acute distress, well developed, well nourished. EARS: auditory canal clear tympanic membrane intact, clear. NOSE: no lesions nares patent. ORAL CAVITY: no lesions mucosa moist. Throat: clear. HPI, ROS, and PE reviewed and amended by Dr. Binu Sibley as necessary. Written by PRERNA Villa 1. 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 Repeat hearing tests as directed. documented in this encounter [facility] 11-26-2022 Evaluation note Encounter Date Diagnosis Assessment Notes Nov, Traumatic rupture of collateral ligament of right middle finger at metacarpophalangeal and interphalangeal joint, initial encounter (ICD-10 - S63.412A) Continue off work at this time. Can discuss possibly returning in 2 weeks. Continue therapy and may discuss using ultrasound treatments. Oral steroid prescribed. Nov, Traumatic rupture of collateral ligament of right index finger at metacarpophalangeal and interphalangeal joint, initial encounter (ICD-10 - S63.410A) Nov, Closed dislocation of metacarpophalangeal (MCP) joint of right index finger (ICD-10 - S63.260A) Nov, Closed dislocation of metacarpophalangeal (MCP) joint of right middle finger (ICD-10 - S63.262A) [employer] Other 03-15-2023 Evaluation note* Encounter Date Diagnosis Assessment Notes Treatment Notes Treatment Clinical Notes Oct, Traumatic rupture of collateral ligament of right middle finger at metacarpophalangeal and interphalangeal joint, initial encounter (ICD-10 - S63.412A) Patient instructed on the use of edema glove. Rx given for Voltaren Gel and Medrol Dosepak Message left for occupational therapy at [facility] to provide patient with edema glove Continue off work Oct, Traumatic rupture of collateral ligament of right index finger at metacarpophalangeal and interphalangeal joint, initial encounter (ICD-10 - S63.410A) Oct, Closed dislocation o f metacarpophalangeal (MCP) joint of right index finger (ICD-10 - S63.260A) Oct, Closed dislocation o f metacarpophalangeal (MCP) joint of right middle finger (ICD-10 - S63.262A) [employer] Other 02-24-2023 Evaluation note* Encounter Date Diagnosis Assessment Notes Treatment Notes Treatment Clinical Notes Sep, Traumatic rupture of collateral ligament of right middle finger at metacarpophalangeal and interphalangeal joint, initial encounter (ICD-10 - S63.412A) Patient instructed to continue use of TKO splint. Off work at this time. Sep, Traumatic rupture of collateral ligament of right index finger at metacarpophalangeal and interphalangeal joint, initial encounter (ICD-10 - S63.410A) Sep, Closed dislocation o f metacarpophalangeal (MCP) joint of right index finger (ICD-10 - S63.260A) Sep, Closed dislocation o f metacarpophalangeal (MCP) joint of right middle finger (ICD-10 - S63.262A) [employer] Other 02-15-2023 Evaluation note* Encounter Date Diagnosis Assessment Notes Treatment Notes Treatment Clinical Notes Sep, Traumatic rupture of collateral ligament of right middle finger at metacarpophalangeal and interphalangeal joint, initial encounter (ICD-10 - S63.412A) We will proceed with right index and long MCP repair possible pinning. Patient placed in TKO splint Sep, Traumatic rupture of collateral ligament of right index finger at metacarpophalangeal and interphalangeal joint, initial encounter (ICD-10 - S63.410A) Sep, Closed dislocation o f metacarpophalangeal (MCP) joint of right index finger (ICD-10 - S63.260A) Sep, Closed dislocation o f metacarpophalangeal (MCP) joint of right middle finger (ICD-10 - S63.262A) [employer] Other 12-29-2022 NoteCONSULTATION CONSULTATION DATE: 08/19/2022 HISTORY OF PRESENT ILLNESS: This is a 52-year-old male returning to the clinic for a three month follow up for his chronic lower back pain. His last appointment was on 05/13/2022 which, at that time, he received right lumbar trigger point injections that gave him good relief for 3-4 days. Approximately one month ago, he ran out of his tramadol and his baclofen and has been without. 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 He feels his right lower back is tight and he feels what he describes as a knot. Any physical activity especially twisting, pushing, pulling and lifting aggravate his pain. Laying completely supine and leaning forward does give him relief. Prescribed medications are tramadol 50 mg t.i.d., baclofen 10 mg q.h.s. , Biofreeze and lidocaine patch. Patient denies any radicular pain. Patient's REVIEW OF SYSTEMS / PAST MEDICAL HISTORY / ALLERGIES and IMAGES have been reviewed and noted in the chart. PHYSICAL EXAM: VITAL SIGNS: Blood pressure is 128/94. Heart rate is 102. Temperature is 96.6. He is 5'10 , weighs 83 kg. GENERAL APPEARANCE: Pleasant, appropriate, in moderate discomfort today. Patient goes back to the room to lay supine on the table. FOCUSED EXAM - BACK: Bilateral paravertebral muscles are spasmodic, right greater than left. Compression along the right lower erector spinae muscle reproduces the patient's pain symptomatology with a positive jump response. No pain reproduced along the lumbar facets. Tammy's point is tender to the right. Negative FABERs and compression test. MUSCULOSKELETAL: Motor is intact bilateral lower extremities, 5/5, with good muscle tone. NEUROLOGICAL: Radicular sensory is intact. Negative polyneuropathy. Lower extremity reflexes are 2/2. DIAGNOSIS: Lumbar paravertebral spasm to the right, lumbar spondylosis, lumbar degenerative disc disease. PLAN: Patient will receive, in office today, right lumbar trigger point injection x1. New prescriptions for baclofen with an increase to 20 mg q.h.s. as well as tramadol 50 mg t.i.d. will be sent to the patient's pharmacy. He was instructed to start this today. Education given regarding Vicks VapoRub, heat and stretches. Patient states understanding and we will see him in three months' time, unless otherwise indicated.[facility] [id number] Note CONSULTATION PROCEDURE DATE: 09/08/2022 PREOPERATIVE DIAGNOSIS: Right lumbar paravertebral spasms. POSTOPERATIVE DIAGNOSIS: Right lumbar paravertebral spasms. PROCEDURE: Right lumbar trigger point injection x1. Subsequent to obtaining informed consent, the patient was placed in the upright standing forward flexion position. Alcohol prep was used to sterilize the site. A 25 gauge needle with 0.125% Marcaine and 40 mg Kenalog was used. The needle was placed to rest inside the trigger zone. Negative heme. Medication was injected in a slow fan-like pattern and the patient tolerated the procedure well. He will be followed up in the clinic in three months' time.[facility] [id number] NoteCONSULTATION CONSULTATION DATE: 05/13/2022 HISTORY OF PRESENT ILLNESS: This is a 52-year-old gentleman, returning to the clinic for a three month follow up. He is complaining of 7/10 right lower back pain today. He had lumbar radiofrequency ablations in February that initially he reported successful resolve of pain, but lately his pain has been increased. 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 He feels that he is greatly inflamed. All activity including bending, twisting, stairs and rotation increases pain. He does not use heat. He uses ice which he reports is helpful. Medications include tramadol 50 mg t.i.d., Biofreeze, lidocaine patches, baclofen 10 mg q.h.s. and alternates between ibuprofen and Aleve. Patient's REVIEW OF SYSTEMS / PAST MEDICAL HISTORY / ALLERGIES and IMAGES have been reviewed and they are noted on the chart. PHYSICAL EXAM: VITAL SIGNS: Blood pressure 135/90, heart rate is 86. Temperature is 97.5. He is 5'10 and weighs 85 kg. GENERAL IMPRESSION: Pleasant, appropriate, uncomfortable sitting in the chair, holding his right side. FOCUSED EXAM - BACK: Range of motion is guarded in right lateral rotation. Paravertebral muscles are spasmodic to the right with trigger points identified in two locations. Positive jump response upon palpation which reproduces the patient's pain symptomatology. No reproduction of spinal axial pain upon compression of the lumbar facets, indicative of successful RFA. Tammy's point is non-tender bilaterally with negative FABERs and compression test. MUSCULOSKELETAL: Motor is intact to bilateral lower extremities, 5/5. Patient does not use assistive device to ambulate. He has a strong and steady gait. NEUROLOGICAL: Radicular sensory is intact. Negative polyneuropathy. DIAGNOSIS: Right paravertebral spasm, lumbar spondylosis, lumbar degenerative disc disease. PLAN: Patient will receive right lumbar trigger point injection in two locations. Education was given regarding the use of heat instead of ice and mixing Vicks VapoRub with Voltaren gel and applying it to this area. Stretches were demonstrated and highly recommended the patient to take. Vitamin importance again was stressed with the patient, which would include a multivitamin and magnesium. Patient will be followed up in three months' time unless otherwise indicated.[facility] [id number] NoteCONSULTATION PROCEDURE DATE: 05/13/2022 PREOPERATIVE DIAGNOSIS: Right paravertebral spasm. POSTOPERATIVE DIAGNOSIS: Right paravertebral spasm. PROCEDURE: Right lumbar trigger point injections x2. Subsequent to obtaining informed consent, the patient was placed in an upright standing forward flexion position. Alcohol prep was used to sterilize the site. A 25 gauge needle with 0.125% Marcaine and 40 mg of Kenalog for a total volume of 4 cc was used and divided into two locations. The needle was placed to rest inside the trigger zones. Negative heme. Medication was injected in a fan-like pattern and patient tolerated procedure well. He will be followed up in the office.[facility] [id number] NoteCONSULTATION CONSULTATION DATE: 02/17/2022 This is a pleasant 51-year-old male returning to the clinic status post bilateral RFAs of L2, L3 and L4, L5 with the last procedure completed on 01/12/2022. The patient is reporting 100% relief to both sides; however, he is experiencing left-sided lumbar spasms. He has been taking his Baclofen 10 mg in the evening on a p.r.n. basis. He does take tramadol 50 mg t.i.d. and has found that he takes with 500 mg Tylenol and he experiences higher pain relief. Overall the patient is very pleased with his results. Activities that aggravate his pain at this time is bending. He currently does not use heat or ice. He denies any new pain patterns or vasomotor weakness. REVIEW OF SYSTEMS, PAST MEDICAL HISTORY, ALLERGIES AND IMAGES: Have been reviewed and noted in the chart. PHYSICAL EXAM: VITAL SIGNS: Blood pressure 152/101, heart rate is 74, temperature is 98.2. Height is 5'10, weighs 86 kg. GENERAL APPEARANCE: Pleasant and appropriate. No acute distress. FOCUSED EXAM: BACK: Range of motion is within functional limits for lateral rotation and flexion/extension. Bilateral paravertebral muscles are taut to the left and compression reproduces the patient's pain symptoms. No reproduction of spinoaxial pain to compression of the facets indicative of successful RFA. Tammy's point is nontender bilaterally. MUSCULOSKELETAL: Motor is intact, 5 out of 5 bilaterally. Walks with a steady gait. Does not use assistive device. NEUROLOGICAL: Radicular sensory is intact. Negative polyneuropathy. Patellar and Achilles reflexes are intact. DIAGNOSIS: Left lumbar paravertebral spasm, lumbar degenerative disk disease and lumbar spondylosis. PLAN: Tramadol refill 50 mg t.i.d. will be sent to the pharmacy today. The patient was instructed to take his Baclofen 10 mg q.h.s. every night in addition to using a mix of Icy Hot and Voltaren gel to his back with the application of a heat source nightly. The patient agrees with the plan of care and will return in three months' time for a quarterly follow-up. [facility] Signed and Approved by: LORRIE ARCHER . 02/25/2022 16:28:00[facility]05-05-2022 NoteCONSULTATION CONSULTATION DATE: 12/24/2021 HISTORY: This is a 51-year-old male who returns to the clinic status post #2 bilateral MBB to L2, L3 and L4, L5 completed on 12/08/2021. Patient reports this afforded him 100% relief for two days. Patient's pain today is 8/10 and he is reporting that it is worse now, at this time, than prior to his procedure. During his time of relief, patient states he felt great and was able to be more active in the house and in the yard with bending and reaching with significantly less pain. 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 He has tried heat in the past, and he feels it aggravates his pain. He does use ice occasionally, which decreases his pain by numbing. Current medications include tramadol 50 mg b.i.d., baclofen 10 mg q.h.s., multivitamin and Norvasc. The patient states the tramadol barely touches the pain as of recently. He is sitting uncomfortably in the chair, leaning to one side. Patient's REVIEW OF SYSTEMS / PAST MEDICAL HISTORY / ALLERGIES and IMAGES have been reviewed and they are noted on the chart. PHYSICAL EXAM: VITALS: Blood pressure 114/79, heart rate is 83. Temperature is 97.8. He is 5'10 and weighs 82 kilos. GENERAL APPEARANCE: Mildly distressed sitting in the chair, pleasant and appropriate. FOCUSED EXAM - BACK: Paravertebral muscles are taut but non-spasmodic. Range of motion is guarded in lateral rotation and flexion/extension. Reproduction of patient's pain symptomatology to direct compression along the posterior elements of the lumbar facets of L2, L3 and L4, L5 bilaterally, which is concordant with facet arthropathy, lumbar spondylosis. Tammy's point is non-tender bilaterally. Lauren's is negative. MUSCULOSKELETAL: Motor is intact, 4/5 bilaterally. Patient walks with antalgic gait. NEUROLOGICAL: Radicular sensory is intact. Negative polyneuropathy. Patellas are +1 bilaterally. IMPRESSION: Lumbar degenerative disc, lumbar spondylosis and spinal axial lower back pain. PLAN: Patient wishes to move forward with radiofrequency ablation of L2, L3 and L4, L5 starting on the right side and subsequently move to the left. Due to his level of pain, I will give him a short term prescription of 14 days of Independence 5/325 b.i.d. This will be changed back to tramadol following his radiofrequency ablation. I did encourage him to use a heat rub and to decrease the use of ice. He is to apply heat daily. I did suggest lidocaine [id number] patches to help with his discomfort. Patient agrees with the plan of care and he would like to proceed. He will be followed up in the clinic post procedure. [facility] Signed and Approved by: LORRIE ARCHER . 12/30/2021 13:48:00[facility]03-31-2022 NoteCONSULTATION PAIN MANAGEMENT CONSULTATION This is an active 51-year-old gentleman who returns to the clinic status post #1 bilateral MBB to L2, L3 and L4, L5 completed on 11/10/2021 that afforded him 100% relief for 24 hours. The patient stated for the first time he is able to sleep good and rotate positions in the bed following the injections and he experienced no pain. He stated he hasn't felt that good in years. Today he reports his pain is 8 out of 10 and sharp. He arrives at the clinic after working all day which has aggravated his pain. Twisting, turning, prolonged sanding, lifting and bending aggravates his pain. He feels heat aggravates his pain so therefore he is using ice intermittently which is beneficial. Medications include Baclofen 10 mg q.h.s., Tramadol 50 mg b.i.d. and ibuprofen 800 mg 2-3 times a day. The patient states he has a history of minor GI bleed with black stools following too much ibuprofen. He is very careful with his administration of it. He denies any new pain pattern or vasomotor weakness. REVIEW OF SYSTEMS, PAST MEDICAL HISTORY, ALLERGIES AND IMAGES: Have been reviewed and noted in the chart. PHYSICAL EXAM: VITAL SIGNS: Blood pressure 158/101, heart rate is 84, temperature is 97/7. Height is 5'10 , weighs 84 kg. GENERAL APPEARANCE: Pleasant, appropriate and in no acute distress, sitting in the chair. FOCUSED EXAM: BACK: Bilateral paravertebral tightness is noted but non-spasmodic. Reproduction of the patient's spinal axial pain noted to direct compression along the posterior elements of the lumbar facets at L2, L3 and L4, L5. Tammy's point is mildly tender bilaterally. Pain is non-radicular. Range of motion is intact but somewhat guarded in lateral rotation and flexion/extension. MUSCULOSKELETAL: Motor is intact 4 out of 5 bilaterally, ambulates with a steady gait without assistive device. NEUROLOGICAL: Radicular sensory is intact. Negative polyneuropathy. DIAGNOSIS: Lumbar degenerative disk disease, lumbar spondylosis, spinal axial lower back pain. PLAN: We will temporarily increase his Tramadol 50 mg t.i.d. to bridge to his rhizotomy procedure. Following that, I discussed with the patient we will decrease Tramadol 50 mg q. day. We will move forward to #2 bilateral MBB to L2, L3 and L4, L5. In the meantime encouraged the patient to go back to using heat as well as the heat rub. The patient states understanding and would like to proceed. [facility] Signed and Approved by: LORRIE ARCHER . 11/26/2021 16:21:00[facility] noteNo assessment information [facility] Work Phone: Evaluation noteNo [employer] Other Evaluation note* Diagnosis Benign essential hypertension (CMS/HCC)- Primary Essential hypertension, benign Nipple pain Other sign and symptom in breast Lumbosacral spondylosis without myelopathy Benign essential hypertension (CMS/HCC)- Primary Essential hypertension, benign Nipple pain Other sign and symptom in breast Swelling of lower extremity Benign essential hypertension (CMS/HCC)- Primary Essential hypertension, benign Sacroiliitis, not elsewhere classified (M46.1) Sacroiliitis, not elsewhere classified Nipple pain Other sign and symptom in breast 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 documented in this encounter [facility] HealthcareEvaluation note* Diagnosis Benign essential hypertension (CMS/HCC)- Primary Essential hypertension, benign Nipple pain Other sign and symptom in breast Lumbosacral spondylosis without myelopathy Benign essential hypertension (CMS/HCC)- Primary Essential hypertension, benign Nipple pain Other sign and symptom in breast Swelling of lower extremity Benign essential hypertension (CMS/HCC)- Primary Essential hypertension, benign Sacroiliitis, not elsewhere classified (M46.1) Sacroiliitis, not elsewhere classified Nipple pain Other sign and symptom in breast Lumbosacral spondylosis without myelopathy- Primary documented in this encounter [facility] HealthcareEvaluation note* Diagnosis Low back pain, unspecified back pain laterality, unspecified chronicity, unspecified whether sciatica present- Primary [facility] Diagnosis Lumbar spondylosis- Primary Lumbosacral spondylosis without myelopathy Chronic right-sided lumbar radiculopathy Lumbosacral pain, chronic [facility] Diagnosis Benign essential hypertension (CMS/HCC)- Primary Essential hypertension, benign Nipple pain Other sign and symptom in breast Lumbosacral spondylosis without myelopathy Benign essential hypertension (CMS/HCC)- Primary Essential hypertension, benign Nipple pain Other sign and symptom in breast Swelling of lower extremity Benign essential hypertension (CMS/HCC)- Primary Essential hypertension, benign Sacroiliitis, not elsewhere classified (M46.1) Sacroiliitis, not elsewhere classified Nipple pain Other sign and symptom in breast Lumbosacral spondylosis without myelopathy- Primary Lumbosacral spondylosis without myelopathy documented in this encounter [facility]* Diagnosis Benign essential hypertension (CMS/HCC)- Primary Essential hypertension, benign Nipple pain Other sign and symptom in breast Lumbosacral spondylosis without myelopathy Benign essential hypertension (CMS/HCC)- Primary Essential hypertension, benign Nipple pain Other sign and symptom in breast Swelling of lower extremity Benign essential hypertension (CMS/HCC)- Primary Essential hypertension, benign Sacroiliitis, not elsewhere classified (M46.1) Sacroiliitis, not elsewhere classified Nipple pain Other sign and symptom in breast Lumbosacral spondylosis without myelopathy- Primary Spondylosis without myelopathy or radiculopathy, lumbar region- Primary Radiculopathy, lumbar region Thoracic or lumbosacral neuritis or radiculitis, unspecified Low back pain, unspecified back pain laterality, unspecified chronicity, unspecified whether sciatica present Other chronic pain documented in this encounter [facility]* Diagnosis Benign essential hypertension (CMS/HCC)- Primary Essential hypertension, benign Nipple pain Other sign and symptom in breast Lumbosacral spondylosis without myelopathy Benign essential hypertension (CMS/HCC)- Primary Essential hypertension, benign Nipple pain Other sign and symptom in breast Swelling of lower extremity Benign essential hypertension (CMS/HCC)- Primary Essential hypertension, benign Sacroiliitis, not elsewhere classified (M46.1) Sacroiliitis, not elsewhere classified Nipple pain Other sign and symptom in breast Lumbosacral spondylosis without myelopathy- Primary Lumbosacral spondylosis with myelopathy- Primary Lumbosacral spondylosis without myelopathy documented in this encounter [facility]* Diagnosis Benign essential hypertension (CMS/HCC)- Primary Essential hypertension, benign Nipple pain Other sign and symptom in breast Lumbosacral spondylosis without myelopathy Benign essential hypertension (CMS/HCC)- Primary Essential hypertension, benign Nipple pain Other sign and symptom in breast Swelling of lower extremity Benign essential hypertension (CMS/HCC)- Primary Essential hypertension, benign Sacroiliitis, not elsewhere classified (M46.1) Sacroiliitis, not elsewhere classified Nipple pain Other sign and symptom in breast Lumbosacral spondylosis without myelopathy- Primary Lumbosacral spondylosis with myelopathy- Primary Lumbosacral spondylosis without myelopathy Spondylosis without myelopathy or radiculopathy, lumbar region- Primary Radiculopathy, lumbar region Thoracic or lumbosacral neuritis or radiculitis, unspecified Low back pain, unspecified back pain laterality, unspecified chronicity, unspecified whether sciatica present Other chronic pain documented in this encounter [facility] N[facility] - Reported* Type Description Date Medical History HTN Surgical History ACD/ACF 2001 Surgical History neck Surgical History Procedure:left thumb pinning/OR IF Surgical History rotater cuff Surgical History circumsion as adult Surgical History vasectomy Surgical History excision squamous cell skin can cer 11/2014 Surgical History rotatory cuff surgery 5 Surgical History L3/4, 11/24, 12/20 [employer] [facility] Nerve Block 2 out of 2 05/22/2018 Surgical History distal Biceps repair right Dr. Frias 06/27/2019 Hospitalization History See Sx [facility] [employer] Other Hospital Discharge instructions Additional Instructions DR. LUCAS'S POST OP INSTRUCTIONS Take prescribed pain medication as directed and as needed to control your post- operative pain. -In addition to the prescribed medication, you may take ibuprofen (Advil, Motrin) or naproxen (Aleve/Naprosyn) to help control pain and decrease swelling. -DO NOT TAKE ibuprofen/Naprosyn/naproxen if you have a history of bleeding ulcer, are taking anticoagulation medication (Coumadin/warfarin, Eliquis, Xarelto, Plavix, Lovenox), if you have had a history of gastric bypass surgery, or if you have a history of kidney disease. Elevate the operative area as much as possible, using at least 2-3 pillows, keeping the hand higher than the elbow. Keep ice at the operative area as much as possible. It takes longer than 20 minutes for the cold to penetrate the bandages, so leave the ice bag or cold pack in place until the ice melts, then it is time to change to a fresh ice bag or cold pack. -Elevation and ice help to lessen the swelling post-operatively which helps to lessen pain so that you will need to take less pain medication, as well as maintaining better range of motion and function of your hand (more swelling, less movement). You may wiggle your fingers, bending, flexing, and move them to decrease stiffness. You may use your hands for light activities of 2-5 lbs. This is lifting your coffee cup, using your silverware, and typing on a computer or tablet. -Do NOT perform strenuous lifting or lift greater than 10 lbs until directed by your surgeon at follow-up You may remove your dressing on the third day after surgery, after meeting with the hand therapist, and get your surgical incision wet in the shower or when washing your hands with soap and water. -DO NOT soak your incision or submerge it under standing water such as dishwater or bathtub. -DO NOT apply perfumed moisturizers or ointments unless otherwise instructed by your physician. -Washing your incision gently with soap and water on a daily basis, helps to rid your skin of bacteria and decrease the risk of wound infections. -After showering or washing your hands, pat the incision dry, and keep covered with a clean dry gauze bandage. -You may apply Bacitracin, Neosporin, or generic triple antibiotic ointment to incision if you would like Take vitamin C 500 mg by mouth daily to help skin and incision heal Take antibiotics as directed to decrease risk of infection after surgery [facility] Work Phone: InstructionsNot on filedocumented in this encounter [facility] for visit Narrative* Rehabilitation - Outpatient (Routine) - Authorized Specialty Diagnoses / Procedures Referred By Contac t Referred To Contact Physical Therapy Diagnoses Spondylosis without myelopathy or radiculopathy, lumbar region Radiculopathy, lumbar region Low back pain, unspecified Other chronic pain Procedures [place] PHYSICAL THERAPY EVALUATION LOW COMPLEX 20 MINS [place] OFFICE/OUTPATIENT NEW HIGH Steven Villanueva MD [address] [place] [address] Phone: tel: fax: [facility] [address] [address] Phone: tel: fax: Referral ID Status Reason Start Date Expiration Date V isits Requested Visits Authorized [id number] Authorized 08/29/2024 02/06/2025 30 30 [facility] Summary Purpose Family History No Family History Records Found Relationship Condition Age at Onset Recorded Date/T james brother Polyp of colon Unknown Not Specified Diabetes mellitus Unknown Cerebrovascular accident (CVA) Unknown Hypertension Unknown Advance Directives No Advanced Directives Records Found Advance Directive Response Recorded Date/ Time Advance Directives No April 9:47am Chief Complaint and Reason for Visit Chief Complaint X-ray Chief Complaint X-ray Subluxation Chief Complaint X-ray Subluxation Subluxation Additional Source Comments (unrecognized sect ion and content) No Status Records FoundNo Status Records FoundNo Status Records FoundNo Status Records FoundNo Status Records FoundNo Status Records FoundNo Status Records Found INFORMATION SOURCE (unrecogn ized section and content) DATE CREATED AUTHOR 10/21/2021 [facility] DATE CREATED AUTHOR AUTHOR'S ORGANIZ ATION 11/09/2021 [facility] DATE CREATED AUTHOR AUTHOR'S ORGANIZ ATION 09/30/2022 [facility] DATE CREATED AUTHOR AUTHOR'S ORGANIZ ATION 10/15/2022 [facility] DATE CREATED AUTHOR AUTHOR'S ORGANIZ ATION 08/11/2024 [facility] DATE CREATED AUTHOR AUTHOR'S ORGANIZ ATION 08/12/2024 [facility] DATE CREATED AUTHOR AUTHOR'S ORGANIZ ATION 09/14/2024 [facility] [employer] Care Teams (unrecognized sec tion and content) Team Status: Inactive Member Role Status Dates Divina Perez MD Primary Care Provider Active Kory Pennington Jr, DO Attending Provider Active Team Status: Active Member Role Status Dates Divina Perez MD Primary Care Provider Active Team Status: Inactive Member Role Status Dates Divina Perez MD Primary Care Provider Active Kimber Lucas MD Attending Provider Active Head Cashier Relationship Specialty Start Date End Date Divina Perez MD [address] [place] [address] PCP - [employer] 11/20/20 Divina Perez MD [address] [place] [address] PCP - General Family Medicine 01/18/23 Head Cashier Relationship Specialty Start Date End Date Divina Perez MD [address] [place] [address] PCP - [employer] 11/20/20 Divina Perez MD [address] [facility] [address] [place] [address] PCP - General Family Medicine 01/18/23 Head Cashier Relationship Specialty Start Date [place] [address] [address] PCP - General 05/01/18 Head Cashier Relationship Specialty Start Date [place] [address] [place] [address] PCP - General 05/01/18 Head Cashier Relationship Specialty Start Date End Date Divina Perez MD [address] [facility] [address] [place] [address] PCP - [employer] 11/20/20 Divina Perez MD [address] [place] [address] PCP - General Family Medicine 01/18/23 Head Cashier Relationship Specialty Start Date End Date Divina Perez MD [address] [facility] [address] [place] [address] PCP - [employer] 11/20/20 Divnia Perez MD [address] [place] [address] PCP - General Family Medicine 01/18/23 Head Cashier Relationship Specialty Start Date End Date Divina Perez MD [address] [place] [address] PCP [employer] 11/20/20 Divina Perez MD [address] [place] [address] PCP - General Family Medicine 01/18/23 Head Cashier Relationship Specialty Start Date End Date Divina Perez MD [address] [place] [address] PCP [employer] 11/20/20 Divina Perez MD [address] [place] [address] PCP - General Family Medicine 01/18/23 Head Cashier Relationship Specialty Start Date End Date Divina Perez MD [address] [place] [address] [facility]20 Divina Perez MD [address] [place] [address] PCP - General Family Medicine 01/18/23 Goals (unrecognized section and content) Goals may be documented in a n alternate sectionGoals may be documented in an alternate sectionNo InformationNo InformationNo InformationNo InformationNo InformationNot on filedocumented as of this encounterNot on filedocumented as of this encounter REASON FOR VISIT (unrecogniz ed section and content) Reason Comments Hypertension Back Pain Reason Comments Consult New patient, lumbar, xrays in chart Specialty Diagnoses / Procedures Referred By Contjessica t Referred To Contact Neurosurgery Diagnoses Lumbosacral spondylosis without myelopathy Procedures [id number] (SNOMED CT) - AMB REFERRAL TO NEUROSURGERY Divina Perez MD [address] [facility] [address] [place] [address] Phone: tel: fax: Bright Vasques MD [facility] [address] [place] [address] Phone: tel: fax: Referral ID Status Reason Start Date Expiration Date V isits Requested Visits Authorized [id number] Pending Review 07/30/2024 01/26/2025 1 1 Reason Onset Date Comments Med Refill 08/09/2024 Reason Comments Back Pain FOR RECORDS PERTAINING TO PATIENTS WHO ARE OR HAVE BEEN ENROLLED IN A CHEMICAL DEPENDENCY/SUBSTANCEABUSE PROGRAM, SOME INFORMATION MAY BE OMITTED. This clinical summary was aggregated from multiple sources. Caution should be exercised in using it in the provision of clinical care. This summary normalizes information from multiple sources, and as a consequence, information in this document may materially change the coding, format and clinical context of patient data. In addition, data may be omitted in some cases. CLINICAL DECISIONS SHOULD BE BASED ON THE PRIMARY CLINICAL RECORDS. [employer] provides no warranty or guarantee of the accuracy or completeness of information in this document.
== END 2024-09-25 15:26 | disposition home or self-care (01) ==
LOC: MRI 15:25
PROVIDERS: Family Provider Nurse Practitioner; PCP Family Medicine
DX: M47.816 Spondylosis without myelopathy or radiculopathy, lumbar region (principal); M54.16 Radiculopathy, lumbar region; M54.50 Low back pain, unspecified; G89.29 Other chronic pain; M51.369 Other intervertebral disc degeneration, lumbar region without mention of lumbar back pain or lower extremity pain
CPT/HCPCS: 72148